=== PATIENT | male | born 1975 | race Hispanic/Latino ===

== ENCOUNTER 2019-12-07 09:03 | Emergency (ER) | payer OTHER, SELFPAY ==
[2019-12-07 09:08] VITALS: BP 123/88; PULSE 90; RESP 16; TEMP 36.6; O2SAT 99
--- NOTE | 2019-12-07 09:08 | ED.URI ---
HPI - URI/Sore Throat General Chief Complaint: Upper Respiratory Infection Stated Complaint: asthma problems Time Seen by Provider: 12/07/19 09:08 Source: patient and RN notes reviewed History of Present Illness HPI Narrative: Patient is a 44-year-old male that presents the urgent care with complaints of cough, congestion, nasal congestion, sinus pressure. Patient states that started 3 days ago and he has been taking Tylenol, ibuprofen and cold medication. Patient denies any fevers or chest pain. States that he has been using an inhaler and it does help. No other acute complaints. No acute distress noted. Denies any recent travel or known exposure to coronavirus. Patient's daughter has been translating for him and he understands Slovak fairly well. Patient aware of the plan of care. Related Data Home Medications Medication Instructions Recorded Confirmed insulin regular human [Humulin R 10 unit SUBCUT TID 09/29/19 12/07/19 Regular U-100 Insuln] atorvastatin 40 mg PO DAILY 10/05/19 12/07/19 buspirone 5 mg PO BID 10/05/19 12/07/19 fluoxetine 10 mg PO DAILY 10/05/19 12/07/19 gabapentin 100 mg PO TID 10/05/19 12/07/19 insulin glargine [Basaglar KwikPen 10 unit SUBCUT DAILY 10/05/19 12/07/19 U-100 Insulin] losartan 100 mg PO DAILY 10/05/19 12/07/19 metformin 1,000 mg PO BID 10/05/19 12/07/19 albuterol sulfate [Ventolin HFA] 2 puff INHALATION QID 12/07/19 12/07/19 Allergies Allergy/AdvReac Type Severity Reaction Status Date / Time Penicillins Allergy Rash Verified 12/07/19 09:26 Review of Systems Review of Systems: Narrative: CONSTITUTIONAL: Denies fever, chills, or sweats. EYES: Denies visual changes, redness, or discharge. ENT: Reports of sinus congestion/pressure, rhinorrhea, postnasal drainage CARDIOVASCULAR: Denies chest pain, palpitations, or edema. RESPIRATORY: Reports of dry cough with intermittent dyspnea and wheezing GASTROINTESTINAL: Denies abdominal pain, nausea, vomiting, or diarrhea. GENITOURINARY: Denies dysuria or hematuria. SKIN: Denies rash or itching. MUSCULOSKELETAL: Denies back pain, joint pain, or myalgia. NEUROLOGIC: Denies headache, numbness, or weakness. All other systems reviewed are negative, except as documented in HPI. [facility] Social History Social History (Updated 10/05/19 @ 17:40 by RYANNE Tipton) Smoking status: Never smoker Comments At the time of my signature, I reviewed and agree with the nursing past medical, surgical, social, and family history. There is no relevant family history pertinent to the patient complaint. Exam Narrative: Exam Narrative: GENERAL: This is a well-nourished, well-developed patient, in no apparent distress. HEAD: normocephalic, atraumatic. Frontal sinus tenderness EYES: PERRL. Sclera clear/white. Vision is grossly intact. EARS: External ears normal, auditory canals clear and without drainage, TMs normal without perforation. Hearing grossly intact. NOSE: External nose normal with no obvious nasal discharge, bilateral erythemic nares with clear rhinorrhea. THROAT: Mucous membranes moist, posterior pharynx clear. NECK: Neck supple, non-tender without lymphadenopathy, masses or thyromegaly. CARDIOVASCULAR: Regular rate and rhythm without murmurs, gallops, or rubs. RESPIRATORY: Slight expiratory wheeze to left upper, cleared with cough. Otherwise clear throughout. SKIN: warm, intact with no suspicious lesions or rash, good texture and turgor. NEURO: awake, alert, and oriented to person, place and time. There were no obvious focal neurologic abnormalities. EXTREMITIES: No clubbing, cyanosis, or edema. Course Vital Signs Vital signs: Vital Signs Temperature 97.9 F 12/07/19 09:08 Pulse Rate 90 12/07/19 09:08 Respiratory Rate 16 12/07/19 09:08 Blood Pressure 123/88 12/07/19 09:08 Pulse Oximetry 99 12/07/19 09:08 Temperature 97.9 F 12/07/19 09:08 Pulse Rate 90 12/07/19 09:08 Respiratory Rate 16 12/07/19 09:08 Blood P
== END 2019-12-07 09:35 | disposition home or self-care (01) ==
PROVIDERS: Emergency Provider Nurse Practitioner Family; PCP Family Medicine
DX: R06.2 Wheezing (principal); I10 Essential (primary) hypertension; E11.9 Type 2 diabetes mellitus without complications; F41.9 Anxiety disorder, unspecified; F32.9 Major depressive disorder, single episode, unspecified; J45.909 Unspecified asthma, uncomplicated
CPT/HCPCS: 99213; G0463

== ENCOUNTER 2020-02-28 09:18 | Emergency (ER) | payer OTHER, SELFPAY ==
[2020-02-28 09:53] VITALS: BP 140/89; PULSE 80; RESP 18; TEMP 36.8; O2SAT 99
--- NOTE | 2020-02-28 10:18 | ED.GENADULT ---
HPI - General Adult General Chief complaint: Weakness Stated complaint: Right side of face numb Time Seen by Provider: 02/28/20 09:50 Source: patient and RN notes reviewed Mode of arrival: ambulatory Limitations: language barrier (Liberian speaking, daughter at bedside translating) History of Present Illness HPI narrative: 45-year-old male presents with complaints of left body (head-toe) numbness for the past 3 days. Loss of vision in LT eye for the past of 2 days. Symptoms increased over the past 24 hours with intermittent chest pain and upon arrival to triage LT arm feeling heavy. No treatment. History of CVA, HTN, CO, and DM. No exacerbating factors. Family history of heart disease but no sudden . Denies fever or chills. Denies leg swelling, long car rides, hisorty of DVT, PE, LE edema, or dizziness. The patient reports he have not been diagnosed with COVID-19. The patient reports he is not waiting for the results of a COVID-19 lab test. The patient reports he do not have fever, chills, fatigue, myalgia, or facial swelling. The patient reports he do not have a new or worsening cough or shortness of breath. The patient reports he do not have any rhinorrhea, congestion, sore throat, nausea, vomiting, abdominal pain, and diarrhea. Tolerating po intake well. Denies recent traveling. Denies concerns for COVID-19 or exposures been home since [id number] order except for essential household needs, working, and return home. At this time, patient is not suspected of having COVID-19. Some parts of this dictation were generated by voice recognition software and may contain typographical and/or grammatical inaccuracies. Related Data Home Medications Medication Instructions Recorded Confirmed amlodipine 2.5 mg PO BID 12/07/19 12/07/19 azelastine 137 mcg INTRANASAL Q12H 12/07/19 12/07/19 cholecalciferol (vitamin D3) 25 mcg PO DAILY 12/07/19 12/07/19 [Vitamin D3] famotidine [Pepcid] 40 mg PO DAILY 12/07/19 12/07/19 fluoxetine 20 mg PO DAILY 12/07/19 12/07/19 fluticasone furoate 50 mcg INHALATION BID 12/07/19 12/07/19 labetalol 200 mg PO Q12H 12/07/19 12/07/19 levothyroxine 112 mcg PO DAILY 12/07/19 12/07/19 magnesium 250 mg PO DAILY 12/07/19 12/07/19 montelukast 10 mg PO DAILY 12/07/19 12/07/19 ospemifene [Osphena] 60 mg PO DAILY 12/07/19 12/07/19 spironolactone 25 mg PO DAILY 12/07/19 12/07/19 vitamin B complex [B 1 tablet PO DAILY 12/07/19 12/07/19 Complex-Vitamin B12] Allergies Allergy/AdvReac Type Severity Reaction Status Date / Time Penicillins Allergy Rash Verified 12/07/19 09:58 Review of Systems Review of Systems: Narrative: CONSTITUTIONAL: Denies fever, chills, sweats. EYES: Denies visual changes, redness, discharge. ENT: Denies rhinorrhea, congestion, sore throat, otalgia. Complains of loss of vision in LT eye. CARDIOVASCULAR: Complains of chest pain. Denies palpitations, edema. RESPIRATORY: Denies dyspnea, wheezing, cough. GASTROINTESTINAL: Denies abdominal pain, nausea, vomiting, diarrhea. GENITOURINARY: Denies dysuria, hematuria, abnormal discharge. SKIN: Denies rash or itching. MUSCULOSKELETAL: Denies acute back pain or myalgia. NEUROLOGIC: Complains of left body (head-toe) numbness. PSYCHIATRIC: Denies anxiety or depression. All systems reviewed & are unremarkable except as noted in HPI and below PMFSH Past Medical History Medical History (Updated 03/03/20 @ 13:08 by RYANNE Hernandez) Anxiety Asthma Carpal tunnel syndrome Depression Diabetes History of myocardial infarction History of TIA (transient ischemic attack) Surgical History Surgical History (Updated 03/03/20 @ 13:08 by RYANNE Hernandez) History of carpal tunnel surgery History of cholecystectomy Hx of appendectomy Family History Family History (Updated 03/03/20 @ 13:07 by RYANNE Hernandez) Father Throat cancer Mother Heart disease Social History Social History (Update
== END 2020-02-28 10:09 | disposition short-term general hospital (02) ==
PROVIDERS: Emergency Provider Nurse Practitioner Family; PCP Family Medicine
DX: I63.9 Cerebral infarction, unspecified (principal); E11.9 Type 2 diabetes mellitus without complications; I25.2 Old myocardial infarction; I10 Essential (primary) hypertension; Z86.73 Personal history of transient ischemic attack (TIA), and cerebral infarction without residual deficits
CPT/HCPCS: 99212; G0463

== ENCOUNTER 2020-05-23 10:08 | Emergency (ER) | payer OTHER, SELFPAY ==
[2020-05-23 10:14] VITALS: BP 140/80; PULSE 75; RESP 20; TEMP 36.6; O2SAT 97
--- NOTE | 2020-05-23 10:33 | ED.SKABFB ---
HPI - Skin/Abscess/Foreign Bdy General Chief complaint: Skin/Abscess/Foreign Body Stated complaint: rash on hands/arms/face Time Seen by Provider: 05/23/20 10:24 Source: patient, family and RN notes reviewed Mode of arrival: ambulatory Limitations: no limitations ( helps with translation when needed) History of Present Illness HPI narrative: Patient presents today with 2-day history of severely pruritic rash to bilateral arms, face, and upper back. Denies pain or drainage.He has tried Benadryl cream without relief. He also takes Singulair for allergies.Denies any new foods or plant contact. Denies any changes in household products.States his rash is significantly worse when he goes outside in the heat, and improves when he is inside. MD complaint: rash Related Data Home Medications Medication Instructions Recorded Confirmed amlodipine 2.5 mg PO BID 12/07/19 05/23/20 azelastine 137 mcg INTRANASAL Q12H 12/07/19 05/23/20 cholecalciferol (vitamin D3) 25 mcg PO DAILY 12/07/19 05/23/20 [Vitamin D3] famotidine [Pepcid] 40 mg PO DAILY 12/07/19 05/23/20 fluoxetine 20 mg PO DAILY 12/07/19 05/23/20 fluticasone furoate 50 mcg INHALATION BID 12/07/19 05/23/20 labetalol 200 mg PO Q12H 12/07/19 05/23/20 levothyroxine 112 mcg PO DAILY 12/07/19 05/23/20 magnesium 250 mg PO DAILY 12/07/19 05/23/20 montelukast 10 mg PO DAILY 12/07/19 05/23/20 ospemifene [Osphena] 60 mg PO DAILY 12/07/19 05/23/20 spironolactone 25 mg PO DAILY 12/07/19 05/23/20 vitamin B complex [B 1 tablet PO DAILY 12/07/19 05/23/20 Complex-Vitamin B12] Allergies Allergy/AdvReac Type Severity Reaction Status Date / Time Penicillins Allergy Rash Verified 05/23/20 10:24 Sulfa (Sulfonamide Allergy Rash Verified 05/23/20 10:25 Antibiotics) Review of Systems Review of Systems: Narrative: CONSTITUTIONAL: Denies body aches, fever, chills, or sweats. EYES: Denies visual changes, redness, or discharge. ENT: Denies rhinorrhea, congestion, sore throat, or otalgia. CARDIOVASCULAR: Denies chest pain, palpitations, or edema. RESPIRATORY: Denies cough or dyspnea. GASTROINTESTINAL: Denies abdominal pain, nausea, vomiting, or diarrhea. GENITOURINARY: Denies dysuria or hematuria. SKIN: Denies wounds.+Pruritic rash MUSCULOSKELETAL: Denies back pain, joint pain, or myalgia. NEUROLOGIC: Denies headache, numbness, tingling, or weakness. PSYCH: Denies depression or anxiety. [facility] Past Medical History Medical History (Updated 05/23/20 @ 10:40 by Cari Dumont, RYANNE, ) Anxiety Asthma Carpal tunnel syndrome Depression Diabetes History of myocardial infarction History of TIA (transient ischemic attack) Surgical History Surgical History (Updated 03/03/20 @ 13:08 by RYANNE Hernandez) History of carpal tunnel surgery History of cholecystectomy Hx of appendectomy Family History Family History (Updated 03/03/20 @ 13:07 by RYANNE Hernandez) Father Throat cancer Mother Heart disease Social History Social History (Updated 03/03/20 @ 13:08 by RYANNE Hernandez) Smoking status: Never smoker Second hand tobacco smoke exposure: No Substance use: never Gender identity (if verbalized by the patient): Male Comments At time of signature, I have reviewed and agree with nursing past medical, surgical, social and family history unless otherwise noted. Please see nursing chart for further information. There is no relevant family history pertinent to the presenting complaint Exam Narrative: Exam Narrative: GENERAL: Well-appearing, well-nourished, and in no acute distress. HEAD: Normocephalic, atraumatic. EYES: EOMI. No redness or drainage. Conjunctivae normal. ENT: Mucous membranes pink and moist. Nares clear. No rhinorrhea. NECK: Normal AROM. CHEST: No respiratory distress. EXTREMITIES: Normal range of motion. No edema. SKIN: Warm, dry. Capillary refill normal. Normal skin turgor. Small, faintly pink
== END 2020-05-23 10:45 | disposition home or self-care (01) ==
PROVIDERS: Emergency Provider Nurse Practitioner; PCP Family Medicine
DX: L30.9 Dermatitis, unspecified (principal); F41.9 Anxiety disorder, unspecified; F32.9 Major depressive disorder, single episode, unspecified; J45.909 Unspecified asthma, uncomplicated; I25.2 Old myocardial infarction; Z86.73 Personal history of transient ischemic attack (TIA), and cerebral infarction without residual deficits
CPT/HCPCS: 99213; G0463

== ENCOUNTER 2020-06-01 11:37 | Emergency (ER) | payer OTHER, SELFPAY ==
[2020-06-01 11:42] VITALS: BP 134/81; PULSE 70; RESP 20; TEMP 36.8; O2SAT 98
--- NOTE | 2020-06-01 11:42 | ED.DENTAL ---
HPI - Dental/Oral General Chief complaint: Dental/Oral Stated complaint: broken tooth Time Seen by Provider: 06/01/20 11:42 Source: patient and RN notes reviewed History of Present Illness HPI Narrative: Patient is a 45-year-old male who presents the urgent care with his daughter, who is translating for him, with complaints of lower right dental pain. Patient states that the tooth broke off last night and his dentist told him to come here to get on antibiotics before they follow-up with him in 3 weeks . Patient states that he is used Tylenol without any relief. Denies of bad taste in the mouth, nausea, vomiting, fever. Patient states that he did make the appointment for 3 weeks out with his dentist. No other acute complaints. No acute distress noted. Patient and daughter aware of the plan of care. Related Data Home Medications Medication Instructions Recorded Confirmed amlodipine 2.5 mg PO BID 12/07/19 06/01/20 azelastine 137 mcg INTRANASAL Q12H 12/07/19 06/01/20 cholecalciferol (vitamin D3) 25 mcg PO DAILY 12/07/19 06/01/20 [Vitamin D3] famotidine [Pepcid] 40 mg PO DAILY 12/07/19 06/01/20 fluticasone furoate 50 mcg INHALATION BID 12/07/19 06/01/20 labetalol 200 mg PO Q12H 12/07/19 06/01/20 levothyroxine 112 mcg PO DAILY 12/07/19 06/01/20 magnesium 250 mg PO DAILY 12/07/19 06/01/20 ospemifene [Osphena] 60 mg PO DAILY 12/07/19 06/01/20 spironolactone 25 mg PO DAILY 12/07/19 06/01/20 vitamin B complex [B 1 tablet PO DAILY 12/07/19 06/01/20 Complex-Vitamin B12] atorvastatin 40 mg PO DAILY 06/01/20 06/01/20 fluoxetine 10 mg PO DAILY 06/01/20 06/01/20 losartan 100 mg PO DAILY 06/01/20 06/01/20 montelukast 10 mg PO DAILY 06/01/20 06/01/20 nystatin 1 applic TOPICAL BID 06/01/20 06/01/20 Allergies Allergy/AdvReac Type Severity Reaction Status Date / Time Penicillins Allergy Rash Verified 06/01/20 11:54 Sulfa (Sulfonamide Allergy Rash Verified 06/01/20 11:54 Antibiotics) Review of Systems Review of Systems: Narrative: CONSTITUTIONAL: Denies fever, chills, or sweats. EYES: Denies visual changes, redness, or discharge. ENT: Denies rhinorrhea, congestion, sore throat, or otalgia. Reports of lower right broken tooth/dental pain CARDIOVASCULAR: Denies chest pain, palpitations, or edema. RESPIRATORY: Denies cough or dyspnea. GASTROINTESTINAL: Denies abdominal pain, nausea, vomiting, or diarrhea. GENITOURINARY: Denies dysuria or hematuria. SKIN: Denies rash or itching. MUSCULOSKELETAL: Denies back pain, joint pain, or myalgia. NEUROLOGIC: Denies headache, numbness, or weakness. All other systems reviewed are negative, except as documented in HPI. [facility] Past Medical History Medical History (Updated 06/01/20 @ 11:55 by RYANNE Mckeon) Anxiety Asthma Carpal tunnel syndrome Depression Diabetes History of myocardial infarction History of TIA (transient ischemic attack) Surgical History Surgical History (Updated 03/03/20 @ 13:08 by RYANNE Hernandez) History of carpal tunnel surgery History of cholecystectomy Hx of appendectomy Family History Family History (Updated 03/03/20 @ 13:07 by RYANNE Hernandez) Father Throat cancer Mother Heart disease Social History Social History (Updated 03/03/20 @ 13:08 by RYANNE Hernandez) Smoking status: Never smoker Second hand tobacco smoke exposure: No Substance use: never Gender identity (if verbalized by the patient): Male Comments At the time of my signature, I reviewed and agree with the nursing past medical, surgical, social, and family history. There is no relevant family history pertinent to the patient complaint. Exam Narrative: Exam Narrative: GENERAL: This is a well-nourished, well-developed patient, in no apparent distress. HEAD: normocephalic, atraumatic. EYES: PERRL. Sclera clear/white. Vision is grossly intact. EARS: External ears normal NOSE: External nose normal with no obvious nasal
== END 2020-06-01 12:00 | disposition home or self-care (01) ==
PROVIDERS: Emergency Provider Nurse Practitioner Family; PCP Family Medicine
DX: S02.5XXA Fracture of tooth (traumatic), initial encounter for closed fracture (principal); X58.XXXA Exposure to other specified factors, initial encounter; J45.909 Unspecified asthma, uncomplicated; E11.9 Type 2 diabetes mellitus without complications; Z86.73 Personal history of transient ischemic attack (TIA), and cerebral infarction without residual deficits; I25.2 Old myocardial infarction; F41.9 Anxiety disorder, unspecified; F32.9 Major depressive disorder, single episode, unspecified
CPT/HCPCS: 99213; G0463

== ENCOUNTER 2020-06-09 09:06 | Emergency (ER) | payer OTHER, SELFPAY ==
[2020-06-09 09:12] VITALS: BP 128/72; PULSE 67; RESP 20; TEMP 37; O2SAT 98
--- NOTE | 2020-06-09 09:17 | ED.MALEGU ---
HPI - Male Genitourinary General Chief complaint: Urogenital-Male Stated complaint: pain with urination/blood in urine Time Seen by Provider: 06/09/20 09:15 Source: patient Mode of arrival: ambulatory Limitations: no limitations History of Present Illness HPI Narrative: Danny Crawley is a 45 year old male with a PMH of HTN, high cholesterol, GERD, depression, hypothyroid, who comes with 10/10 back pain and pain when tries to urinate. No history of renal calculi. Has called primary care doctor who told him to go to the ER-states pain started yesterday and is increased in intensity. As of note patient has treatment resistant hypertension also; although blood pressure looks Related Data Home Medications Medication Instructions Recorded Confirmed amlodipine 2.5 mg PO BID 12/07/19 06/09/20 azelastine 137 mcg INTRANASAL Q12H 12/07/19 06/09/20 cholecalciferol (vitamin D3) 25 mcg PO DAILY 12/07/19 06/09/20 [Vitamin D3] famotidine [Pepcid] 40 mg PO DAILY 12/07/19 06/09/20 fluticasone furoate 50 mcg INHALATION BID 12/07/19 06/09/20 labetalol 200 mg PO Q12H 12/07/19 06/09/20 levothyroxine 112 mcg PO DAILY 12/07/19 06/09/20 magnesium 250 mg PO DAILY 12/07/19 06/09/20 ospemifene [Osphena] 60 mg PO DAILY 12/07/19 06/09/20 spironolactone 25 mg PO DAILY 12/07/19 06/09/20 vitamin B complex [B 1 tablet PO DAILY 12/07/19 06/09/20 Complex-Vitamin B12] atorvastatin 40 mg PO DAILY 06/01/20 06/09/20 fluoxetine 10 mg PO DAILY 06/01/20 06/09/20 losartan 100 mg PO DAILY 06/01/20 06/09/20 montelukast 10 mg PO DAILY 06/01/20 06/09/20 nystatin 1 applic TOPICAL BID 06/01/20 06/09/20 Allergies Allergy/AdvReac Type Severity Reaction Status Date / Time Penicillins Allergy Rash Verified 06/09/20 09:10 Sulfa (Sulfonamide Allergy Rash Verified 06/09/20 09:10 Antibiotics) Review of Systems Review of Systems: Narrative: CONSTITUTIONAL: Denies fever, chills, sweats. EYES: Denies visual changes, redness, discharge. ENT: Denies rhinorrhea, congestion, sore throat, otalgia. CARDIOVASCULAR: Denies chest pain, palpitations, edema. RESPIRATORY: Denies dyspnea, wheezing, cough GASTROINTESTINAL: Has abdominal pain, nausea, pain in lower back -jimena blood in urine at home -vomiting, diarrhea. GENITOURINARY: Denies dysuria, hematuria, abnormal discharge SKIN: Denies rash or itching. NEUROLOGIC: Denies numbness, or focal weakness. PSYCHIATRIC: Denies anxiety or depression. [facility] Past Medical History Medical History Anxiety Asthma Carpal tunnel syndrome Depression Diabetes History of myocardial infarction History of TIA (transient ischemic attack) Surgical History Surgical History History of carpal tunnel surgery History of cholecystectomy Hx of appendectomy Family History Family History Father Throat cancer Mother Heart disease Social History Social History Smoking status: Never smoker Second hand tobacco smoke exposure: No Substance use: never Gender identity (if verbalized by the patient): Male Comments At time of signature, I agree with nursing past medical, surgical, social and family history. There is no relevant family history pertinent to the presenting complaint. Exam Narrative: Exam Narrative: GENERAL: This is a well-nourished, well-developed patient, in moderate distress. HEAD: normocephalic, atraumatic. EYES: Sclera clear/white. Vision is grossly intact. EARS: External ears normal. Hearing grossly intact. NOSE: External nose normal without nasal discharge, nares without redness, no rhinorrhea. THROAT: Mucous membranes moist, NECK: Neck supple, non-tender CARDIOVASCULAR: Regular rate and rhythm without murmurs, gallops, or rubs. RESPIRATORY: Clear to auscultation.
[2020-06-09] MEDS: KETOROLAC (*BKC) 60 MG/2 ML VIAL IM (09:37)
== END 2020-06-09 10:01 | disposition short-term general hospital (02) ==
PROVIDERS: Emergency Provider Nurse Practitioner; PCP Family Medicine
DX: R31.29 Other microscopic hematuria (principal); M54.5 Low back pain; E11.9 Type 2 diabetes mellitus without complications; I25.2 Old myocardial infarction; Z86.73 Personal history of transient ischemic attack (TIA), and cerebral infarction without residual deficits
CPT/HCPCS: 81003; 96372; 99213; G0463; J1885

== ENCOUNTER 2020-07-23 12:11 | Emergency (ER) | payer OTHER, SELFPAY ==
[2020-07-23 12:21] VITALS: BP 158/80; PULSE 82; RESP 20; TEMP 36.2; O2SAT 100
--- NOTE | 2020-07-23 12:24 | ED.GENADULT ---
HPI - General Adult General Chief complaint: Wound/Laceration Stated complaint: cut on head Time Seen by Provider: 07/23/20 12:24 Source: patient, family and RN notes reviewed Mode of arrival: ambulatory Limitations: no limitations History of Present Illness HPI narrative: 45 year old male accompanied by with laceration to the left side of his head within the past hour prior to arrival at [facility]. Patient speaks Korean and translates for him during visit. states patient was remodeling bathroom and mirror came down and hit him on the head causing Laceration. Patient and state no loss of consciousness and denies any dizziness or acute headache pain. Patient has flap type of lesion on the left side of scalp in temporal region measures 1.5cm total length no acute drainage noted at this time. Tetanus needs to be updated. MD complaint: laceration to head Onset (ago): hour(s) Location: head Radiation: non-radiation Severity: moderate Severity scale (1-10): 5 Quality: sharp Associated symptoms: denies other symptoms Treatments prior to arrival: none Related Data Home Medications Medication Instructions Recorded Confirmed atorvastatin 40 mg PO DAILY 06/01/20 06/09/20 fluoxetine 10 mg PO DAILY 06/01/20 06/09/20 losartan 100 mg PO DAILY 06/01/20 06/09/20 insulin glargine [Lantus U-100 10 unit SUBCUT QPM 07/23/20 07/23/20 Insulin] insulin zinc extended human 5 unit SUBCUT DAILY 07/23/20 07/23/20 [Humulin U Insulin] metformin 1,000 mg PO BID 07/23/20 07/23/20 Allergies Allergy/AdvReac Type Severity Reaction Status Date / Time Penicillins Allergy Rash Verified 07/23/20 12:30 Sulfa (Sulfonamide Allergy Rash Verified 07/23/20 12:30 Antibiotics) Review of Systems Review of Systems: Narrative: CONSTITUTIONAL: Denies fever, chills, or sweats. EYES: Denies visual changes, redness, or discharge. ENT: Denies rhinorrhea, congestion, sore throat, or otalgia. CARDIOVASCULAR: Denies chest pain, palpitations, or edema. RESPIRATORY: Denies cough or dyspnea. GASTROINTESTINAL: Denies abdominal pain, nausea, vomiting, or diarrhea. GENITOURINARY: Denies dysuria or hematuria. SKIN: Denies rash or itching, positive for laceration to the left temporal side of head MUSCULOSKELETAL: Denies back pain, joint pain, or myalgia. NEUROLOGIC: Denies headache, numbness, or weakness. PSYCHIATRIC: Denies anxiety or depression. All systems reviewed & are unremarkable except as noted in HPI and below PMFSH Past Medical History Medical History (Updated 07/23/20 @ 12:49 by Diane Mahan NP) Anxiety Asthma Carpal tunnel syndrome Depression Diabetes History of myocardial infarction History of TIA (transient ischemic attack) Surgical History Surgical History History of carpal tunnel surgery History of cholecystectomy Hx of appendectomy Family History Family History Father Throat cancer Mother Heart disease Social History Social History Smoking status: Never smoker Second hand tobacco smoke exposure: No Substance use: never Gender identity (if verbalized by the patient): Male Comments At time of signature, agree with nursing past medical, surgical, social and family history. There is no relevant family history pertinent to the presenting complaint Exam Narrative: Exam Narrative: GENERAL: Well-appearing, well-nourished, and in no acute distress. HEAD: Normocephalic, atraumatic. EYES: PERRLA and EOMI. ENT: Nares clear, no rhinorrhea or epistaxis. Mucous membranes moist. NECK: Supple.no lymphadenopathy CHEST: Clear to auscultation. No respiratory distress.SAO2 100% on room air. HEART: Regular rate and rhythm. No murmur heard. Normal peripheral pulses. ABDOMEN: Soft, nontender, nondistended, normal active bowel sounds.
[2020-07-23] MEDS: TETANUS,DIPHTHERIA,AC PERTUSSIS ADULT (0.5 ML) BOOSTRIX IM (12:42)
== END 2020-07-23 13:08 | disposition home or self-care (01) ==
PROVIDERS: Emergency Provider Registered Nurse; PCP Family Medicine
DX: S01.01XA Laceration without foreign body of scalp, initial encounter (principal); W20.8XXA Other cause of strike by thrown, projected or falling object, initial encounter; Z23 Encounter for immunization; J45.909 Unspecified asthma, uncomplicated; E11.9 Type 2 diabetes mellitus without complications; F41.9 Anxiety disorder, unspecified; F32.9 Major depressive disorder, single episode, unspecified; I25.2 Old myocardial infarction; Z86.73 Personal history of transient ischemic attack (TIA), and cerebral infarction without residual deficits
CPT/HCPCS: 12001; 90471; 90715; 99212; G0463

== ENCOUNTER 2020-08-02 16:36 | Emergency (ER) | payer OTHER, SELFPAY ==
--- NOTE | 2020-08-02 16:37 | ED.SKABFB ---
HPI - Skin/Abscess/Foreign Bdy General Chief complaint: Wound/Laceration Stated complaint: staple removal from head Time Seen by Provider: 08/02/20 16:45 Source: patient and RN notes reviewed Mode of arrival: ambulatory Limitations: no limitations History of Present Illness HPI narrative: 45-year-old male presents with concern for staple removal. Reports 10 days ago he had 4 cynthia placed in his scalp after he sustained a laceration. He denies any complications, pain, drainage. MD complaint: other (Staple removal) Related Data Home Medications Medication Instructions Recorded Confirmed atorvastatin 40 mg PO DAILY 06/01/20 07/23/20 fluoxetine 10 mg PO DAILY 06/01/20 07/23/20 losartan 100 mg PO DAILY 06/01/20 07/23/20 insulin glargine [Lantus U-100 10 unit SUBCUT QPM 07/23/20 07/23/20 Insulin] insulin zinc extended human 5 unit SUBCUT DAILY 07/23/20 07/23/20 [Humulin U Insulin] metformin 1,000 mg PO BID 07/23/20 07/23/20 Allergies Allergy/AdvReac Type Severity Reaction Status Date / Time Penicillins Allergy Rash Verified 08/02/20 16:55 Sulfa (Sulfonamide Allergy Rash Verified 08/02/20 16:55 Antibiotics) Review of Systems Review of Systems: Narrative: CONSTITUTIONAL: Denies malaise, chills, sweats, or fever. EYES: Denies visual changes CARDIOVASCULAR: Denies chest pain, palpitations RESPIRATORY: Denies cough or dyspnea. SKIN: Reports 4 cynthia to the scalp NEUROLOGIC: Denies headache. All systems reviewed & are unremarkable except as noted in HPI and below PMFSH Past Medical History Medical History (Updated 08/02/20 @ 16:55 by Camille Navarro NP) Anxiety Asthma Carpal tunnel syndrome Depression Diabetes History of myocardial infarction History of TIA (transient ischemic attack) Surgical History Surgical History History of carpal tunnel surgery History of cholecystectomy Hx of appendectomy Family History Family History Father Throat cancer Mother Heart disease Social History Social History Smoking status: Never smoker Second hand tobacco smoke exposure: No Substance use: never Gender identity (if verbalized by the patient): Male Comments At time of signature, agree with nursing past medical, surgical, social and family history. There is no relevant family history pertinent to the presenting complaint Exam Narrative: Exam Narrative: GENERAL: Well-appearing, well-nourished, and in no acute distress. HEAD: Normocephalic EYES: PERRLA, conjunctivae clear ENT: Mucous membranes moist. NECK: Supple. CHEST: No respiratory distress. Speaks in full sentences. HEART: Regular rate and rhythm. SKIN: Warm, dry, no rash. Well approximated laceration with scab, healing noted to the left scalp, 4 intact cynthia without erythema, edema, induration, drainage NEURO: Alert and oriented x3 PSYCH: Normal mood and affect Course Course Emergency Course: Patient is aware of diagnosis, understands and agrees to treatment plan. Anticipatory guidance given. Patient agrees to follow-up as directed and is aware of reasons to seek care at the emergency department. Portions of this record may have been created with voice recognition software Vital Signs Vital signs: Vital Signs Temperature 98.3 F 08/02/20 16:40 Pulse Rate 88 08/02/20 16:40 Respiratory Rate 18 08/02/20 16:40 Blood Pressure 125/75 08/02/20 16:40 Pulse Oximetry 98 08/02/20 16:40 Temperature 98.3 F 08/02/20 16:40 Pulse Rate 88 08/02/20 16:40 Respiratory Rate 18 08/02/20 16:40 Blood Pressure 125/75 08/02/20 16:40 Pulse Oximetry 98 08/02/20 16:40 Reviewed. MDM - Skin/Abscess/Foreign Bdy MDM Narrative Medical decision making narrative: Verbal consent was obtained. Wound well approximated, no erythema, carola
[2020-08-02 16:40] VITALS: BP 125/75; PULSE 88; RESP 18; TEMP 36.8; O2SAT 98
== END 2020-08-02 16:55 | disposition home or self-care (01) ==
PROVIDERS: Emergency Provider Nurse Practitioner; PCP Family Medicine
DX: S01.01XD Laceration without foreign body of scalp, subsequent encounter (principal); X58.XXXD Exposure to other specified factors, subsequent encounter; F41.9 Anxiety disorder, unspecified; E11.9 Type 2 diabetes mellitus without complications; I25.2 Old myocardial infarction; Z86.73 Personal history of transient ischemic attack (TIA), and cerebral infarction without residual deficits; J45.909 Unspecified asthma, uncomplicated
CPT/HCPCS: 99211; G0463

== ENCOUNTER 2021-08-29 11:14 | Emergency (ER) | payer OTHER, MEDICAID, SELFPAY ==
[2021-08-29 11:22] VITALS: BP 159/96; PULSE 74; RESP 16; TEMP 36.9; O2SAT 97
--- NOTE | 2021-08-29 11:58 | ED.HA ---
HPI - Headache General Chief Complaint: Headache Stated Complaint: headache History of Present Illness HPI Narrative: This is a 46-year-old morbidly obese male comes in complaining of a headache that he has had for 2 days patient states that he has some nausea no vomiting has some blurred vision and seeing spots lights bother him and when I am talking he has pounded on his left temporal Related Data Home Medications Medication Instructions Recorded Confirmed atorvastatin 40 mg PO DAILY 06/01/20 08/29/21 losartan 100 mg PO DAILY 06/01/20 08/29/21 metformin 1,000 mg PO BID 07/23/20 08/29/21 gabapentin 300 mg PO TID 08/29/21 08/29/21 insulin pump cartridge [Omnipod 08/29/21 08/29/21 Dash 5 Pack Pod] ketoconazole 1 applic TOPICAL BID 08/29/21 08/29/21 Allergies Allergy/AdvReac Type Severity Reaction Status Date / Time Penicillins Allergy Rash Verified 08/29/21 11:41 Sulfa (Sulfonamide Allergy Rash Verified 08/29/21 11:41 Antibiotics) Review of Systems Review of Systems: Headache All systems reviewed & are unremarkable except as noted in HPI and below PMFSH Past Medical History Medical History (Updated 08/29/21 @ 13:09 by Cindy Gill NP) Anxiety Asthma Carpal tunnel syndrome Depression Diabetes History of myocardial infarction History of TIA (transient ischemic attack) Surgical History Surgical History History of carpal tunnel surgery History of cholecystectomy Hx of appendectomy Family History Family History Father Throat cancer Mother Heart disease Social History Social History Smoking status: Never smoker Second hand tobacco smoke exposure: No Substance use: never Gender identity (if verbalized by the patient): Male Comments At time as signature, I have reviewed and agree with nursing past medical, social, surgical and family history. Please see nursing chart for further information. There is no relevant family history pertinent to the presenting complaint. Exam Narrative: GENERAL:Well-appearing, well-nourished, and in no acute distress. HEAD:Normocephalic, EYES: PERRLA . ENT: Nares clear, no rhinorrhea or epistaxis. Mucous membranes moist. CHEST: Clear to auscultation. No respiratory distress. HEART: Regular rate and rhythm. Normal peripheral pulses. ABDOMEN: Soft, nontender, nondistended, normal active bowel sounds. EXTREMITIES: Normal range of motion. No edema. SKIN: Warm, dry, no rash. NEURO: No focal deficits. Alert and oriented x3. Course Vital Signs Vital signs: Vital Signs Temperature 98.4 F 08/29/21 11:22 Pulse Rate 74 08/29/21 11:22 Respiratory Rate 16 08/29/21 11:22 Blood Pressure 159/96 H 08/29/21 11:22 Pulse Oximetry 97 08/29/21 11:22 Temperature 98.4 F 08/29/21 11:22 Pulse Rate 74 08/29/21 11:22 Respiratory Rate 16 08/29/21 11:22 Blood Pressure 159/96 H 08/29/21 11:22 Pulse Oximetry 97 08/29/21 11:22 MDM - Headache Differential Diagnosis Differential diagnosis: Likely migraine, tension headache, subarachnoid hemorrhage, headache, meningitis and sinusitis Lab Data Labs: Lab Results 08/29/21 Range/Units 11:40 POC SARS CoV-2 Ag Negative (Negative) Influenza A Screen Negative Reference Range: Negative Influenza B Screen Negative Reference Range: Negative Discharge Plan Discharge Clinical Impression: Headache Patient Disposition: Home, Self-Care Condition: Stable Instructions: Antibiotic Form, Acute Headache (ED) Additional Instructions: Do not drive if you have taken a prescription pain medicine. Rest in a quiet, dark room until your headache is gone. Close your ey
[2021-08-29] MEDS: KETOROLAC 30 MG/ML VIAL (*BKC) IM (12:30)
[2021-08-29] MEDS: diphenhydrAMINE HCl CAP 25 MG CAPSULE 50 MG PO (12:31)
[2021-08-29] MEDS: ONDANSETRON HCL ODT 4 MG TABLET PO (12:32)
== END 2021-08-29 13:25 | disposition home or self-care (01) ==
PROVIDERS: Emergency Provider Nurse Practitioner Family; PCP Family Medicine
DX: R51.9 Headache, unspecified (principal); Z20.822 Contact with and (suspected) exposure to COVID-19; J45.909 Unspecified asthma, uncomplicated; E11.9 Type 2 diabetes mellitus without complications; I25.2 Old myocardial infarction; Z86.73 Personal history of transient ischemic attack (TIA), and cerebral infarction without residual deficits
CPT/HCPCS: 87426; 87804; 96372; 99213; A9270; C9803; G0463; J1885

== ENCOUNTER 2021-09-28 16:26 | Emergency (ER) | payer OTHER, MEDICAID, SELFPAY ==
[2021-09-28 16:59] VITALS: BP 180/97; PULSE 85; RESP 18; TEMP 36.8; O2SAT 99
[2021-09-28 17:30] VITALS: BP 140/90
[2021-09-28 17:58] VITALS: BP 146/95
--- NOTE | 2021-09-28 17:58 | ED.GENADULT ---
HPI - General Adult General Chief complaint: Headache Stated complaint: Headache Time Seen by Provider: 09/28/21 17:28 Source: patient, family and RN notes reviewed Mode of arrival: ambulatory History of Present Illness HPI narrative: This is a 46 YO male that presented to our with complaints of a headache, diarrhea, sore thoat, cough and fatigue that started yesterday. His symptoms started 2 weeks ago.The patient denies CP, palpitation, extremity numbness, lightheadedness, dizziness, constipation, diarrhea, chills, or fever. Related Data Home Medications Medication Instructions Recorded Confirmed atorvastatin 40 mg PO DAILY 06/01/20 09/28/21 losartan 100 mg PO DAILY 06/01/20 09/28/21 metformin 1,000 mg PO BID 07/23/20 09/28/21 gabapentin 300 mg PO TID 08/29/21 09/28/21 insulin pump cartridge [Omnipod 08/29/21 08/29/21 Dash 5 Pack Pod] cyclobenzaprine 10 mg PO DAILY 09/28/21 09/28/21 Allergies Allergy/AdvReac Type Severity Reaction Status Date / Time Penicillins Allergy Rash Verified 09/28/21 17:52 Sulfa (Sulfonamide Allergy Rash Verified 09/28/21 17:52 Antibiotics) Review of Systems Review of Systems: A 14 organ system Review of Systems was performed and pertinent positives included in the HPI, otherwise remaining ROS is negative. [facility] Past Medical History Medical History Anxiety Asthma Carpal tunnel syndrome Depression Diabetes History of myocardial infarction History of TIA (transient ischemic attack) Surgical History Surgical History History of carpal tunnel surgery History of cholecystectomy Hx of appendectomy Family History Family History Father Throat cancer Mother Heart disease Social History Social History Smoking status: Never smoker Second hand tobacco smoke exposure: No Substance use: never Gender identity (if verbalized by the patient): Male Exam Narrative: GENERAL: ill appearance in no apparent distress. HEAD: normocephalic, atraumatic. EYES: PERRL. Sclera clear/white. Vision is grossly intact. EARS: External ears normal, auditory canals clear and without drainage, TMs normal without perforation. Hearing grossly intact. NOSE: External nose normal with no obvious nasal discharge, nares without redness, no rhinorrhea. THROAT: Mucous membranes moist, posterior pharynx clear. NECK: Neck supple, non-tender without lymphadenopathy, masses or thyromegaly. CARDIOVASCULAR: Regular rate and rhythm without murmurs, gallops, or rubs. RESPIRATORY: Clear to auscultation. Breath sounds equal bilaterally. No wheezes, rales, or rhonchi. GASTROINTESTINAL: Abdomen soft, non-tender, nondistended. Bowel sounds are active. No hepato-splenomegaly, or palpable masses. No guarding. SKIN: warm, intact with no suspicious lesions or rash, good texture and turgor. NEURO: awake, alert, and oriented to person, place and time. There were no obvious focal neurologic abnormalities. Steady gait EXTREMITIES: Normal range of motion. No edema. No calf tenderness. Negative Homans sign bilaterally. BACK: Nontender without deformity or crepitance. No flank tenderness. Course Course Emergency Course: discharge with albuterol, Tessalon rene,guaifenesin dx viral illness Level of Care: Express Care Visit Vital Signs Vital signs: Vital Signs Temperature 98.2 F 09/28/21 16:59 Pulse Rate 85 09/28/21 16:59 Respiratory Rate 18 09/28/21 16:59 Blood Pressure 180/97 H 09/28/21 16:59 Pulse Oximetry 99 09/28/21 16:59 Temperature 98.2 F 09/28/21 16:59 Pulse Rate 85 09/28/21 16:59 Respiratory Rate 18 09/28/21 16:59 Blood Pressure 180/97 H 09/28/21 16:59 Pulse Oximetry 99 09/28/21 16:59 Medical Decision Making Differ
== END 2021-09-28 18:10 | disposition home or self-care (01) ==
PROVIDERS: Emergency Provider Nurse Practitioner; PCP Family Medicine
DX: B34.9 Viral infection, unspecified (principal); Z20.822 Contact with and (suspected) exposure to COVID-19; J45.909 Unspecified asthma, uncomplicated; F32.9 Major depressive disorder, single episode, unspecified; E11.9 Type 2 diabetes mellitus without complications; I25.2 Old myocardial infarction; Z86.73 Personal history of transient ischemic attack (TIA), and cerebral infarction without residual deficits; Z79.84 Long term (current) use of oral hypoglycemic drugs; Z96.41 Presence of insulin pump (external) (internal)
CPT/HCPCS: 87426; 87804; 99213; C9803; G0463

== ENCOUNTER 2022-08-13 11:46 | Emergency (ER) | payer OTHER, MEDICAID, SELFPAY ==
[2022-08-13 11:54] VITALS: BP 128/92; PULSE 90; RESP 20; TEMP 36.6; O2SAT 99
--- NOTE | 2022-08-13 13:04 | ED.URI ---
HPI - URI/Sore Throat General Chief Complaint: Upper Respiratory Infection Stated Complaint: Throat pain achey Time Seen by Provider: 08/13/22 13:05 Source: patient and RN notes reviewed Mode of arrival: ambulatory Limitations: no limitations History of Present Illness HPI Narrative: 47-year-old male presents concern for 2 day history of body aches, cough, sore throat, headache, nausea, diarrhea. Reports his and daughter had influenza within the last 2 weeks. He reports he has been taking ibuprofen [id number]. He denies shortness of breath, fever. MD elicited complaint: cough, sore throat and nasal congestion Related Data Home Medications Medication Instructions Recorded Confirmed atorvastatin 40 mg tablet 40 mg PO DAILY 06/01/20 08/13/22 losartan 100 mg tablet 100 mg PO DAILY 06/01/20 08/13/22 metformin 1,000 mg tablet 1,000 mg PO BID 07/23/20 08/13/22 gabapentin 300 mg capsule 300 mg PO TID 08/29/21 08/13/22 insulin pump cartridge (Omnipod 08/29/21 08/13/22 Dash Insulin Pod) Allergies Allergy/AdvReac Type Severity Reaction Status Date / Time Penicillins Allergy Mild Rash Verified 08/13/22 12:26 Sulfa (Sulfonamide Allergy Mild Rash Verified 08/13/22 12:26 Antibiotics) Review of Systems Review of Systems: CONSTITUTIONAL: Reports malaise. Denies chills, sweats, or fever. EYES: Denies visual changes, redness, or discharge. ENT: Reports rhinorrhea, congestion, and sore throat. CARDIOVASCULAR: Denies chest pain, palpitations, or edema. RESPIRATORY: Reports cough. Denies dyspnea. GASTROINTESTINAL: Denies abdominal pain, nausea, vomiting, diarrhea SKIN: Denies rash or itching. MUSCULOSKELETAL: Reports myalgia. NEUROLOGIC: Reports headache. All systems reviewed & are unremarkable except as noted in HPI and below PMFSH Past Medical History Medical History (Updated 08/13/22 @ 13:21 by Camille Navarro NP) Anxiety Asthma Carpal tunnel syndrome Depression Diabetes History of myocardial infarction History of TIA (transient ischemic attack) Surgical History Surgical History History of carpal tunnel surgery History of cholecystectomy Hx of appendectomy Family History Family History Father Throat cancer Mother Heart disease Social History Social History Smoking status: Never smoker Second hand tobacco smoke exposure: No Substance use: never Gender identity (if verbalized by the patient): Male Comments At time of signature, agree with nursing past medical, surgical, social and family history. There is no relevant family history pertinent to the presenting complaint Exam Narrative: GENERAL: Nontoxic-appearing and in no acute distress. HEAD: Normocephalic EYES: PERRLA, conjunctivae clear ENT: Nares clear, clear discharge. Mucous membranes moist. TM pearly padron with dull light reflex bilaterally; no tragal tenderness. Oropharynx not erythematous without lesions. Tonsils not enlarged and without exudate, no drooling, no hoarseness, no trismus, uvula midline. NECK: Supple. No lymphadenopathy CHEST: Clear to auscultation, breath sounds equal. No wheezing, rhonchi, rales, or stridor. No respiratory distress, speaks in full sentences. HEART: Regular rate and rhythm. No murmur heard. SKIN: Warm, dry, no rash. NEURO: Alert and oriented x3. PSYCH: Normal mood and affect Course Course Emergency Course: Patient is aware of diagnosis, understands and agrees to treatment plan. Anticipatory guidance given. Patient agrees to follow-up as directed and is aware of reasons to seek care at the emergency department. Portions of this record may have been created with voice recognition software Level of Care: Express Care Visit Vital Signs Vital signs: Vital Signs Temperature 97.9 F 08/13/22 1
== END 2022-08-13 13:25 | disposition home or self-care (01) ==
PROVIDERS: Emergency Provider Nurse Practitioner; PCP Family Medicine
DX: J11.1 Influenza due to unidentified influenza virus with other respiratory manifestations (principal); J45.909 Unspecified asthma, uncomplicated; E11.9 Type 2 diabetes mellitus without complications; Z86.73 Personal history of transient ischemic attack (TIA), and cerebral infarction without residual deficits; I25.2 Old myocardial infarction; Z79.4 Long term (current) use of insulin; Z79.84 Long term (current) use of oral hypoglycemic drugs
CPT/HCPCS: 87804; 99213; G0463

== ENCOUNTER 2023-11-03 14:41 | Emergency (ER) | payer OTHER, MEDICAID, SELFPAY ==
[2023-11-03] VITALS (8 sets, daily range): BP systolic 136–168; BP diastolic 60–99; PULSE 70–80; RESP 12–97; TEMP 36.9–37; O2SAT 12–99
--- NOTE | ~2023-11-03 | CT_ITS ---
Clinical Indication: Chest pain radiating to the back CT Scan of the Chest, Abdomen, and Pelvis with Contrast: Technique: Contiguous sections were acquired throughout the chest, abdomen, and pelvis after intraven ous administration of 100 cc of Omnipaque 350. Dose reduction technique was used on this scan by cristi todding automated exposure control and iterative reconstruction technique. The dose-length product (DL P) was 1686.96 mGy-cm. Findings: There is no evidence of any significant mediastinal, hilar or axillary lymphadenopathy. The mediastin al soft tissues appear normal. No aortic aneurysm or dissection seen. No central pulmonary embolus se en. There is no evidence of pleural or pericardial effusion. The lungs are clear. No pulmonary nodules or infiltrates are noted. The liver, spleen, pancreas, adrenals and kidneys are within normal limits. Cholecystectomy clips are present. No evidence of aortic aneurysm or dissection. No lymphadenopathy. No bowel obstruction or bowel wall thickening. There is no evidence to suggest acute appendicitis. Urinary bladder is unremarkable. No pelvic mass seen. No ascites. Impression: No significant abnormalities seen. No aortic aneurysm or dissection. Reviewed, dictated and finalized at [facility]. 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 No aortic aneurysm or dissection.
--- NOTE | ~2023-11-03 | XR_ITS ---
Portable chest x-ray Comparison: 09/29/2019 Clinical History: Chest pain Findings: Lungs are clear, without focal consolidation or pleural effusion. Cardiomediastinal silho uette is stable. Bones and soft tissues are unremarkable. Impression: Clear lungs. Reviewed, dictated and finalized at location . 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
--- NOTE | ~2023-11-03 | CT_ITS ---
CT ANGIOGRAM NECK AND HEAD History: Left-sided weakness. Technique: Serial spiral axial images through the head and neck were obtained during arterial phase I V injection of 100 cc of Omnipaque 350. 3-D postprocessing and MIP images were then reconstructed on the remote workstation. Dose reduction technique was used on this scan by utilizing automated exposur e control and iterative reconstruction technique. The dose-length product (DLP) was 1186.41 mGy-cm. CTA neck findings: Bilateral vertebral arteries are patent. Bilateral common carotid, internal carot id, and external carotid arteries are patent. No large vessel occlusion. No stenosis or aneurysm. The proximal right internal carotid artery demonstrates 0% stenosis relative to the normal distal artery lumen diameter. The proximal left internal carotid artery demonstrates 0% stenosis relative to the n ormal distal artery lumen diameter. CTA head findings: Distal vertebral arteries, basilar artery, and posterior cerebral arteries are pat ent. Distal internal carotid arteries, middle cerebral arteries, and anterior cerebral arteries are p atent. No large vessel occlusion. No stenosis or aneurysm. Impression: No significant abnormality. Reviewed, dictated and finalized at location . MIXER Impression: No significant abnormality.
--- NOTE | ~2023-11-03 | CT_ITS ---
Non-contrast Head CT History: Left-sided weakness Technique: Axial non-contrast imaging of the brain was performed. Dose reduction technique was used on this scan by utilizing automated exposure control and iterative reconstruction technique. The dose -length product (DLP) was 605.33 mGy-cm. Findings: There is no evidence of intracranial hemorrhage, mass lesion, or acute infarct. Brain par enchyma appears normal. The ventricles and subarachnoid spaces are normal in size. The calvarium ap pears normal. The visualized paranasal sinuses and mastoid air cells are clear. Impression: No significant abnormality seen. Reviewed, dictated and finalized at location . 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
--- NOTE | 2023-11-03 14:48 | ECG_ITS ---
Measurements Intervals Duff Rate: 71 P: 48 MI: 178 QRS: 3 QRSD: 87 T: 24 QT: 382 QTc: 416 Interpretive Statements SINUS RHYTHM NORMAL ECG NO PREVIOUS ECG AVAILABLE FOR COMPARISON Electronically Signed On 11-04-2023 8:37:11 BOILERMAKER MECHANIC by Ramin Carrasco M.D.
[2023-11-03 14:59] LABS: Glucose Point of Care 242 mg/dl (65-105)
[2023-11-03 15:11] LABS: Basophils Percent Auto 0.5 % (0.2-1.2); Eosinophils Absolute Auto 0.1 K/mm3 (0-0.3); Eosinophils Percent Auto 1.5 % (0-4.4); Hematocrit 43.8 % (42.0-52.0); Hemoglobin 15.4 g/dL (14.0-18.0); Immature Granulocyte Absolute 0.03 K/mm3 (0.00-0.031); Immature Granulocyte Percent A 0.4 % (0-0.5); Lymphocytes Absolute Auto 2.69 K/mm3 (0.9-3.2); Lymphocytes Percent Auto 31.6 % (18.3-44.2); Mean Corpuscular HGB Conc 35.2 g/dl (32-36); Mean Corpuscular Hemoglobin 30.4 pg (26-34); Mean Corpuscular Volume 86.6 fl (80-100); Mean Platelet Volume 10.2 fl (7.4-10.4); Monocytes Absolute Auto 0.8 K/mm3 (0.1-0.6); Monocytes Percent Auto 8.8 % (2.6-8.5); Neutrophils Absolute Auto 4.9 K/mm3 (1.3-6.7); Neutrophils Percent Auto 57.2 % (45.5-73.1); Platelet Count Result 253 k/mm3 (150-375); Red Blood Count 5.06 M/mm3 (4.6-6.20); Red Cell Distribution Width 12.5 % (11.5-14.5); White Blood Count 8.5 K/mm3 (4.5-10.0)
[2023-11-03 15:22] LABS: INR 0.9; Prothrombin Time 12.8 Seconds (11.1-14.7)
[2023-11-03 15:23] LABS: Partial Thromboplastin Time 27.2 SECONDS (22.3-36.8)
[2023-11-03 15:37] LABS: Alanine Aminotransferase 35 U/L (6-50); Albumin Level 4.2 g/dL (3.5-5.1); Alkaline Phosphatase 103 U/L (38-126); Anion Gap 6 mmol/L (8-16); Aspartate Amino Transferase 30 U/L (17-59); Bilirubin,Total 0.4 mg/dL (0.2-1.3); Blood Urea Nitrogen 14 mg/dL (9-20); Carbon Dioxide 26 mmol/L (22-30); Chloride 105 mmol/L (98-107); Estimated Glomerular Filt Rate > 60; Glucose 205 mg/dL (65-110); Potassium 4.1 mmol/L (3.4-5.0); Sodium 137 mmol/L (137-145)
--- NOTE | 2023-11-03 15:38 | ED.GENADULT ---
HPI - General Adult General Chief complaint: Chest Pain Stated complaint: chst pain Time Seen by Provider: 11/03/23 15:03 History of Present Illness HPI narrative: Patient is a 48-year-old male who presents ER with chest pain. Sudden onset 30 minutes prior to arrival. He reports it is a ripping sensation that goes towards his back. After calling EMS and being placed on the stretcher EMS noticed that he developed sudden onset left arm weakness. Same with his left lower extremity. Last known well would be approximately 1415. Patient is Cymro-speaking and it was difficult to get patient is on aspirin at home and no other blood thinners. Has history of [place] as well as stroke in the past. Related Data Home Medications Medication Instructions Recorded Confirmed insulin pump cartridge (Omnipod 08/29/21 08/13/22 Dash Insulin Pod) buspirone 10 mg tablet 10 mg PO 11/03/23 carbamazepine 200 mg tablet 200 mg 11/03/23 cholestyramine (with sugar) 4 gram ea 11/03/23 powder for susp in a packet dulaglutide 3 mg/0.5 mL 3 mg subcut 11/03/23 subcutaneous pen injector (Trulicity) famotidine 20 mg tablet 20 mg 11/03/23 insulin glargine 100 unit/mL (3 unit subcut 11/03/23 mL) subcutaneous pen (Lantus Solostar U-100 Insulin) loperamide 2 mg capsule 2 mg PO 11/03/23 methocarbamol 750 mg tablet mg 11/03/23 metoprolol succinate 100 mg mg PO 11/03/23 tablet,extended release 24 hr naproxen 500 mg tablet mg 11/03/23 nortriptyline 25 mg capsule mg 11/03/23 ondansetron HCl 8 mg tablet mg 11/03/23 pen needle, diabetic 32 gauge x 11/03/23 11/03/23 5/32 (BD Raisa 2nd Gen Pen Needle) tizanidine 2 mg tablet mg 11/03/23 Allergies Allergy/AdvReac Type Severity Reaction Status Date / Time Penicillins Allergy Mild Rash Verified 11/03/23 14:49 Sulfa (Sulfonamide Allergy Mild Rash Verified 11/03/23 14:49 Antibiotics) Review of Systems Review of Systems: All systems reviewed & are unremarkable except as noted in HPI and below Constitutional: Constitutional: Reports no additional constitutional complaints Eyes: Comments: Vision loss left upper quadrant left eye ENT: Reports system reviewed and no additional complaints, except as documented Cardiovascular: Cardiovascular: Reports chest pain, Denies rapid heart rate and Denies radiating jaw, neck or arm pain Respiratory: Respiratory: Reports no additional respiratory complaints Gastrointestinal: Gastrointestinal: Reports no additional gastrointestinal complaints Musculoskeletal: Musculoskeletal: Reports no additional musculoskeletal complaints Neurologic: Reports syncope, Reports headache(s), Reports focal weakness, Reports numbness and Reports weakness PMFSH Past Medical History Medical History (Updated 11/03/23 @ 16:22 by Chip Espinoza MD) Anxiety Asthma Carpal tunnel syndrome Depression Diabetes History of myocardial infarction History of TIA (transient ischemic attack) Surgical History Surgical History History of carpal tunnel surgery History of cholecystectomy Hx of appendectomy Family History Family History Father Throat cancer Mother Heart disease Social History Social History Smoking status: Never smoker Second hand tobacco smoke exposure: No Substance use: never Living arrangements: with family Occupation/Education: occupation Gender identity (if verbalized by the patient): Male Exam Narrative: GENERAL: Well-appearing, well-nourished, and in no acute distress. HEAD: Normocephalic, atraumatic. EYES: PERRL and EOMI. ENT: Mucous membranes moist. CHEST: Clear to auscultation. No respiratory distress. HEART: Regular rate and rhythm. Normal peripheral pulses. ABDOMEN: Soft, nontender, nondistended.
[2023-11-03 15:48] LABS: Troponin I < 0.012 ng/mL (0.000-0.034)
--- NOTE | 2023-11-03 16:33 | PC.NURSE ---
Pt and family members discussing TPA administration w/ Dr Espinoza at bedside at this time. Using staff interpreter.
== END 2023-11-03 17:40 | disposition short-term general hospital (02) ==
PROVIDERS: Emergency Provider Emergency Medicine; PCP Family Medicine
DX: I63.9 Cerebral infarction, unspecified (principal); R29.708 NIHSS score 8; J45.909 Unspecified asthma, uncomplicated; E11.9 Type 2 diabetes mellitus without complications; I25.2 Old myocardial infarction; F41.9 Anxiety disorder, unspecified; F32.A Depression, unspecified; Z96.41 Presence of insulin pump (external) (internal); Z86.73 Personal history of transient ischemic attack (TIA), and cerebral infarction without residual deficits; Z90.49 Acquired absence of other specified parts of digestive tract; Z79.4 Long term (current) use of insulin
CPT/HCPCS: 36415; 37195; 70450; 70496; 70498; 71045; 71275; 74174; 80053; 82948; 84484; 85025; 85610; 85730; 93005; 99285; J2997; Q9967

== ENCOUNTER 2024-05-20 17:29 | Emergency (ER) | payer OTHER, SELFPAY ==
[2024-05-20 17:34] VITALS: BP 157/104; PULSE 114; RESP 20; TEMP 37.1; O2SAT 100
--- NOTE | 2024-05-20 18:52 | ED.GENADULT ---
HPI - General Adult General Chief complaint: Chest Pain Stated complaint: stomach pain Time Seen by Provider: 05/20/24 17:39 Source: patient, RN notes reviewed and old records reviewed Mode of arrival: ambulatory Limitations: no limitations History of Present Illness HPI narrative: 49-year-old male to [facility] with his for complaint of diffuse abdominal pain and then chest pain radiating down left arm for for 2 hours. Patient and patient's are primarily Yi-speaking. initially attempted to translate for [facility] staff. Interpretation services initiated. 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 Patient's daughter and patient's expressed disappointment in site interpreter use and requested patient's daughter to translate. Per patient and patient's family request, translation services terminated. Patient tachycardic and hypertensive in triage. According to patient's daughter, patient was hospitalized at [facility] 2 weeks ago for a stroke. Patient's daughter states that patient has cardiac catheterization scheduled for May 28. EKG completed and was negative for DC. EMS called for patient transfer. Unable to further evaluate patient due to time taken for translation and EMS arrival to bedside. Patient A&O x3 exam room. Respirations even and nonlabored. Patient in mild distress from pain. Related Data Home Medications Medication Instructions Recorded Confirmed insulin pump cartridge (Omnipod 08/29/21 08/13/22 Dash Insulin Pod) buspirone 10 mg tablet 10 mg PO DAILY 11/03/23 05/20/24 carbamazepine 200 mg tablet 200 mg PO TID 11/03/23 05/20/24 dulaglutide 3 mg/0.5 mL See Rx Instructions .Route .COMPLEX 11/03/23 05/20/24 subcutaneous pen injector (Trulicity) famotidine 20 mg tablet 20 mg PO DAILY 11/03/23 05/20/24 insulin glargine 100 unit/mL (3 See Rx Instructions .Route .COMPLEX 11/03/23 05/20/24 mL) subcutaneous pen (Lantus Solostar U-100 Insulin) metoprolol succinate 100 mg 100 mg PO DAILY 11/03/23 05/20/24 tablet,extended release 24 hr nortriptyline 25 mg capsule 25 mg PO BID 11/03/23 05/20/24 pen needle, diabetic 32 gauge x 11/03/23 11/03/23 (BD Raisa 2nd Gen Pen Needle) tizanidine 2 mg tablet 2 mg PO BID 11/03/23 05/20/24 amlodipine 10 mg tablet 10 mg PO DAILY 05/20/24 05/20/24 atorvastatin 80 mg tablet 80 mg PO DAILY 05/20/24 05/20/24 ezetimibe 10 mg tablet 10 mg PO DAILY 05/20/24 05/20/24 losartan 100 mg tablet 100 mg PO DAILY 05/20/24 05/20/24 sennosides 8.6 mg tablet (senna) See Rx Instructions .Route 05/20/24 05/20/24 .COMPLEX PRN Constipation spironolactone 25 mg tablet 25 mg PO BID 05/20/24 05/20/24 Allergies Allergy/AdvReac Type Severity Reaction Status Date / Time Penicillins Allergy Mild Rash Verified 05/20/24 17:39 Sulfa (Sulfonamide Allergy Mild Rash Verified 05/20/24 17:39 Antibiotics) Review of Systems Review of Systems: All systems reviewed & are unremarkable except as noted in HPI and below Constitutional: Constitutional: Reports no additional constitutional complaints Eyes: Eyes: Reports no additional eye complaints ENT: Reports system reviewed and no additional complaints, except as documented Cardiovascular: Cardiovascular: Reports as per HPI, Reports chest pain, Reports radiating jaw, neck or arm pain (left arm per patient, translated by daughter) and Denies dyspnea Respiratory: Respiratory: Reports no additional respiratory complaints, Denies cough and Denies dyspnea Gastrointestinal: Gastrointestinal: Reports as per HPI and Reports abdominal pain ( Diffuse) Musculoskeletal: Musculoskeletal: Reports no additional musculoskeletal complaints Neurologic: Reports system reviewed and no additional complaints, except as documented Psychiatric: Psychiatric: Reports no additional psychiatric complaints [facility] Past Medical History Medical History (Update
--- NOTE | 2024-05-20 18:53 | ECG_ITS ---
Test Date: 2024-05-20 17:50:13 Measurements Intervals [place] Rate: 120 P: 27 MA: 148 QRS: -5 QRSD: 82 T: 31 QT: 318 QTc: 451 Interpretive Statements SINUS TACHYCARDIA OTHERWISE WITHIN NORMAL LIMITS No previous ECG available for comparison Electronically Signed On 05-21-2024 13:15:20 CDT by Slim Mckeon M.D.
== END 2024-05-20 18:02 | disposition short-term general hospital (02) ==
PROVIDERS: Emergency Provider Nurse Practitioner Family; PCP Family Medicine
DX: R07.9 Chest pain, unspecified (principal); R10.9 Unspecified abdominal pain; J45.909 Unspecified asthma, uncomplicated; E11.9 Type 2 diabetes mellitus without complications; Z79.4 Long term (current) use of insulin; I25.2 Old myocardial infarction; Z86.73 Personal history of transient ischemic attack (TIA), and cerebral infarction without residual deficits; F41.9 Anxiety disorder, unspecified; F32.A Depression, unspecified
CPT/HCPCS: 93005; 99215; G0463

== ENCOUNTER 2025-02-01 10:59 | Emergency (ER) | payer OTHER, SELFPAY ==
[2025-02-01 11:10] VITALS: BP 141/78; PULSE 67; RESP 20; TEMP 36.5; O2SAT 98
--- OUTSIDE RECORDS SUMMARY | 2025-02-01 11:20 | XMS_ITS | Encounter Summary ---
Author Organization [facility] Address [address] [place] [address] Care Team Providers Care Architectural Intern Name Role Phone Joe Woody MD Primary Care Provider [phone] Joe Woody MD Unavailable [phone] Unknown, Notinfile Unavailable Unavailable Belle Armas MD Unavailable Corbin Ayala MD Unavailable [phone] Slim Grove MD Unavailable [phone] Miscellaneous, Not In File Unavailable Unava ilable Encounter Details Date Type Department Care Team (Late st Contact Info) Description 06/27/2020 Telephone [facility] [address] [facility] [address] [place] [address] Key Calvert RN Social History Tobacco Use Types Packs/Day Years Used Date Smoking Tobacco: Never Smokeless Tobacco: Never Alcohol Use Standard Drinks/Week Comments Never 0 (1 standard drink = 0.6 oz pur e alcohol) AUDIT-C Answer Date Recorded Frequency of Alcohol Consumption Never 06/16/2020 Average Number of Drinks Not on file 020 Frequency of Binge Drinking Not on file 05/25 PHQ-2 Answer Date Recorded PHQ-2 Score 0 05/16/2019 Sex and Gender Information Value Date Recorded Sex Assigned at Not on file Legal Sex Male 12:02 PM CDT Gender Identity Not on file Sexual Orientation Not on file documented as of this encounter Plan of Treatment Not on file documented as of this encounter Visit Diagnoses Not on filedocumented in this encounter Additional Health Concerns Infection Onset Date Last Indicated Resolved Time COVID: Suspected 08/30/2020 08/30/2020 08/30/2020 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
--- OUTSIDE RECORDS SUMMARY | 2025-02-01 11:20 | XMS_ITS | Clinical Summary ---
Author Organization [facility] Address [address] [place] [address] Phone Care Team Providers Care Resident Manager Name Role Phone Joe Woody MD Primary Care Provider [phone] Matthew Guaman MD Unavailable [phone] Toni Reeves MD Unavailable Martina Sheldon APRN, ZYGLO TECHNICIAN Unavailable Allergies Active Allergy Reactions Criticality Noted Date Comments Metformin Diarrhea Low 09/28/2022 And abdominal pain Other-Environmental Allergen (Not Found In Search) Shortness of Breath High 06/19/2022 IV contrast Penicillins Unknown 06/08/2019 Shrimp (Diagnostic) Hives 06/19/2022 Sulfa Antibiotics Unknown 06/08/2019 Medications losartan (COZAAR) 100 MG TabletIndicatio ns:Hypertension Take 100 mg by mouth daily. Indications: High Blood Pressure Disorder Active carBAMazepine (TEGretol) 200 MG Tablet Take 1 Tablet by mouth 3 times daily. 360 Tablet 2 Active Additional Information Patient not taking.Reported on 12/24/2024 atorvastatin (LIPITOR) 80 MG Tablet Take 1 Tablet by mouth nightly. 90 Tablet 2 Active meclizine (ANTIVERT) 25 MG Tablet Take 1 Tablet by mouth 3 times daily as needed for Dizziness. 30 Tablet 2 Active ondansetron (Zofran ODT) 4 MG TABLET DISPERSIBLE Take 1 Tablet by mouth every 6 hours as needed for Nausea - 1st line. 20 Tablet 2 Active albuterol 108 (90 Base) MCG/ACT Aerosol Solution take 2 Puffs by inhalation every 4 hours as needed. Active Dulaglutide (Trulicity) 1.5 MG/0.5ML Solution Pen-injector by Subcutaneous route. Active nortriptyline (PAMELOR) 25 MG Capsule Take 25 mg by mouth nightly. Active cloNIDine (CATAPRES) 0.1 MG Tablet Take 0.1 mg by mouth daily. Active amLODIPine (NORVASC) 10 MG Tablet Take 10 mg by mouth every morning. 4 Active ALPRAZolam (XANAX) 0.25 MG Tablet Take 0.25 mg by mouth nightly. Active escitalopram (LEXAPRO) 20 MG Tablet Take 20 mg by mouth daily. 4 Active busPIRone (BUSPAR) 15 MG Tablet Take 15 mg by mouth 3 times daily. Active OneTouch Verio Strip CHECK BLOOD SUGAR 2X TIMES A DAY 4 Active spironolactone (ALDACTONE) 25 MG Tablet Take 25 mg by mouth 2 times daily. Active methocarbamol (ROBAXIN) 750 MG Tablet Take 750 mg by mouth. 4 Active insulin glargine (Basaglar KwikPen) 100 UNIT/ML Solution Pen-injector 30 Units by Subcutaneous route nightly. 15 mL 3 4 Active Insulin Lispro (HumaLOG KwikPen) 200 UNIT/ML Solution Pen-injector 20 Units by Subcutaneous route 3 times daily (before meals). 15 mL 2 4 Active polyethylene glycol (GLYCOLAX, MIRALAX) 17 g PackIndications :Constipation Take 1 Packet by mouth 2 times daily as needed for Constipation - 1st line. Dissolve in 4-8 oz of liquid. Indications: Constipation 90 Packet 4 Active Additional Information Patient not taking.Reported on 12/24/2024 senna (SENOKOT) 8.6 MG Tablet Take 1 Tablet by mouth 2 times daily as needed for Constipation - 2nd line. 30 Tablet 4 Active Additional Information Patient not taking.Reported on 12/24/2024 Insulin Pen Needle (PEN NEEDLES 31GX5/16 ) 31G X 8 MM [facility] As Instructed- use 4 times daily with insulin pens 100 Each 4 Active Aspirin Low Dose 81 MG Chewable Tablet Take 81 mg by mouth daily. 4 Active metoprolol Succinate (Toprol XL) 50 MG TABLET SR 24 HR Take 1 Tablet by mouth daily. 90 Tablet 3 5 Active ezetimibe (ZETIA) 10 MG Tablet Take 10 mg by mouth daily. 4 025 indomethacin (INDOCIN) 50 MG Capsule Take 1 Capsule by mouth 3 times daily as needed for Moderate or more severe pain (headache) for up to 14 days. 20 Capsule 5 025 Active Problems Problem Noted Date Diagnosed Date Acute CVA (cerebrovascular accident) 08/26/2024 Hyponatremia 05/21/2024 Leukocytosis 05/21/2024 Chest pain 04/29/2024 PFO (patent foramen ovale) 02/27/2024 Overview (04/29/2024): noted on recent [facility] at [facility] History of TIA (transient ischemic attack) 02/26 Overview (04/29/2024): received TNK muliple times Headache 12/21/2021 Mixed hyperlipidemia 12/21/2021 Overview (12/21/2021): Last Assessment & Plan: This is a chronic condition which is not at goal. Goal is less than 70. Personally reviewed POC lipid panel. Cholesterol 256, HDL 35, triglycerides-396, LDL - 142, atorvastatin 40 mg daily. Not at Goal of less than 70 Encouraged to eat healthy, include fresh fruits and vegetables daily and avoid eating fried foods more than once per week. Encouraged to take medications as prescribed. CHF (congestive heart failure) 12/21/2021 History of TIA (transient ischemic attack) 12/21 Type 2 diabetes mellitus, wi th long-term current use of insulin 12/21/2021 Low back pain with left-sided sciatica 2 Trigeminal neuralgia of left side of face 2021 SHERRI (obstructive sleep apnea) 03/03/2020 Essential hypertension 04/16/2019 Overview (12/21/2021): Last Assessment & Plan: This is a chronic condition which is at goal Goal is <140/90. B/P today- 142/80 , currently on losartan 100 mg daily. Personally reviewed labs in care everywhere and media. Avoid caffeine, caffeine will raise blood pressure and excessive alcohol consumption. Monitor your weight and B/P. Encouraged to take medications as prescribed. 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 04/16/2019 Class 3 severe obesity with serious comorbidity and body mass index (BMI) of 45.0 to 49.9 in adult 04/16/2019 Anxiety DM type 2 (diabetes mellitus, type 2) CHF (congestive heart failure) SHERRI on CPAP Trigeminal neuralgia Morbid obesity IN (myocardial infarction) Hypertension HLD (hyperlipidemia) Diabetes mellitus Mild CAD without angina pectoris Resolved Problems Problem Noted Date Diagnosed Date Resolved Date Thrombus of left atrial appendage 02/27/2024 10/16/2024 Overview (04/29/2024): seen on LUIS Encounters Date Type Department Care Team Description 12/26/2024 9:44 AM CDT - 12/26/2024 2:26 PM CDT Emergency [facility] Emergency [address] [place] [address] Jonathan Hernandes MD Acute CVA (cerebrovascular accident) (HCC) Discharge Disposition: Discharged to home or Selfcare 12/26/2024 Travel 12/24/2024 1:30 PM CDT [facility] [address] [place] [address] Martina Sheldon APRN, ÁLVARO Essential hypertension (Primary Dx); Mixed hyperlipidemia; PFO (patent foramen ovale) Discharge Disposition: Discharged to home or Selfcare 12/24/2024 Travel 12/24/2024 Telephone [facility] [address] [place] [address] Martina Sheldon, LARRY, ÁLVARO from Last 3 Months Immunizations Immunization Administration Dates Next Due Covid-19, Mrna, Lnp-s, Pf, 1 00 Mcg Or 50 Mcg Dose (MODERNA) 09/14/2021,01/02/2021,12/05/2020 Influenza Vaccine, MDCK,quad rivalent, pres free 09/14/2021 Influenza Vaccine, Quadrivalent, PF 10/08/2019 Influenza Vaccine,unspecified Formulation 2019 Family History Medical History Relation Name Comments Heart Attack Father Lung Cancer Father Stroke Father Diabetes Mother Hypertension Mother Relation Name Status Comments Father Mother Alive Social History Tobacco Use Types Packs/Day Years Used Date Smoking Tobacco: Never Smokeless Tobacco: Never Alcohol Use Standard Drinks/Week Comments Not Currently 0 (1 standard drink = 0.6 oz pur e alcohol) [facility] Utilities Answer Date Recorded In the past 12 months has [employer], gas, oil, or water [employer] threatened to shut off services in your home? Patient declined 08/26/2024 Social Connection and Isolation Panel [NHANES] A nswer Date Recorded In a typical week, how many times do you talk on the phone with family, friends, or neighbors? Patient declined 08/26/2024 How often do you get togethe r with friends or relatives? Patient declined 08/26/2024 How often do you attend restorationism or catholic serv ices? Patient declined 08/26/2024 Do you belong to any clubs o r organizations such as restorationism groups, unions, fraternal or athletic groups, or school groups? Patient declined 08/26/2024 How often do you attend meet ings of the clubs or organizations you belong to? Patient declined 08/26/2024 Are you , , di vorced, , never , or living with a partner? Patient declined 08/26/2024 AUDIT-C Answer Date Recorded Q1: How often do you have a drink containing alc ohol? Patient declined 08/26/2024 Q2: How many drinks containi ng alcohol do you have on a typical day when you are drinking? Patient declined 08/26/2024 Q3: How often do you have si x or more drinks on one occasion? Patient declined 08/26/2024 Overall Financial Resource Strain (CARDIA) Answe r Date Recorded How hard is it for you to pa y for the very basics like food, housing, medical care, and heating? Patient declined 08/26/2024 PHQ-2 Answer Date Recorded Total Score - Questions 1-9 0 11/23 [facility] - Occupational Stress Questionnaire Answer Date Recorded Do you feel stress - tense, restless, nervous, or anxious, or unable to sleep at night because your mind is troubled all the time - these days? Patient declined 08/26/2024 Exercise Vital Sign Answer Date Recorde d On average, how many days pe r week do you engage in moderate to strenuous exercise (like a brisk walk)? Patient declined On average, how many minutes do you engage in exercise at this level? Patient declined 08/26/2024 Hunger Vital Sign Answer Date Recorded Within the past 12 months, y ou worried that your food would run out before you got the money to buy more. Patient declined Within the past 12 months, t he food you bought just didn't last and you didn't have money to get more. Patient declined 12/2023 PRAPARE - Transportation Answer Date Re corded In the past 12 months, has l ack of transportation kept you from medical appointments or from getting medications? Patient declined 08/26/2024 In the past 12 months, has l ack of transportation kept you from meetings, work, or from getting things needed for daily living? Patient declined 08/26/2024 Housing Stability Vital Sign Answer James e Recorded In the last 12 months, was t here a time when you were not able to pay the mortgage or rent on time? Patient declined 08/26/20 24 In the past 12 months, how m any times have you moved where you were living? 0 08/26/2024 At any time in the past 12 m [facility], were you homeless or living in a nursing home (including now)? Patient declined 08/26/2024 Sexually Active Control Partners Comments Not Currently Sex and Gender Information Value Date Recorded Sex Assigned at Not on file Legal Sex Male 8:40 AM CDT Gender Identity Not on file Sexual Orientation Not on file Last Filed Vital Signs Vital Sign Reading Time Taken Comments Blood Pressure 100/65 12/26/2024 2:15 PM CDT Pulse 57 12/26/2024 2:15 PM CDT Temperature 36.2 C (97.2 F) 12/26/2024 9:52 AM CDT Respiratory Rate 17 12/26/2024 2:15 PM CDT Oxygen Saturation 94% 12/26/2024 2:15 PM CDT Inhaled Oxygen Concentration - - Weight 121.1 kg (267 lb) 12/26/2024 9:53 AM CDT Height 177.8 cm (5' 10 ) 12/26/2024 9:53 AM CDT Body Mass Index 38.31 12/26/2024 9:53 AM CDT Plan of Treatment Upcoming Encounters Date Type Department Care Team (Late st Contact Info) Description 04/09/2025 11:00 AM CDT Office Visit [facility] [place] [address] [place] [address] Toni Reeves MD [address] [address] Health Maintenance Due Date Last Done Comments Diabetes: Eye Exam 1976 Diabetes: Foot Exam 1976 Hepatitis C Virus (HCV) Screening 1975 TdaP Immunization 1976 Hepatitis B Immunization (1 of 3 - 19+ 3-dose series) 02/11/1995 Pneumococcal Immunization Combined (1 of 2 - PCV) 02/11/1995 SARS-COV-2 Immunization ( season) 2024 09/14/2021, 01/02/2021, 12/05/2020 Diabetes: Hemoglobin A1c 02/24/2025 024, 06/26/2024, 04/29/2024, Additional history exists Influenza Immunization (Season Ended) 2025 09/14/2021, 07/01/2020, 10/08/2019 Diabetes: Nephropathy Screening 12/26/2025 12/26/2024, 10/20/2024, 08/26/2024, Additional history exists Colonoscopy 12/10/2033 12/11/2023 Colorectal Cancer Screening 12/10/2033 Respiratory Syncytial Virus (RSV) Immunization (Adult) (1 - 1-dose 75+ series) 02/11/2051 12/11/2023 Meningococcal Immunization (ACWY) Aged Out No longer eligible based on patient's age to complete this topic Rotavirus Immunization Aged Out No lo nger eligible based on patient's age to complete this topic Medical Devices Implanted Type Area Keyliner Device Identifier Shelf Expiration Date Model / Serial / Lot Device Perclose Prostyle Suture-Mediate d Closure And Repair System - [id number] Implanted:Qty: 1 on 05/21/2024 by Ankita Mccoy MD at [facility] IMPLANT [employer] [id number] 04/22/2025 [id number] / [id number] Procedures Procedure Name Priority Date/Time Associated Diagnosis Comments CT STROKE HEAD WO CONTRAST Stat with Interpretation 12/26/2024 10:03 AM CDT CBC WITH AUTO DIFFERENTIAL STAT 12/26/2024 9:57 AM CDT MAGNESIUM (MG) STAT 12/26/2024 9:57 AM CDT TROPONIN I, HIGH SENSITIVITY (HSTRP) STAT 12/26/2024 9:57 AM CDT CMP (COMPREHENSIVE METABOLIC PANEL) STAT 12/26/2024 9:57 AM CDT PROTIME (PT) (PROTHROMBIN TIME) STAT 12/26/2024 9:57 AM CDT APTT (PTT) STAT 12/26/2024 9:57 AM CDT COMPLETE BLOOD COUNT (CBC) WITH DIFF STAT 12/26/2024 9:57 AM CDT POCT GLUCOSE STAT 12/26/2024 9:51 AM CDT EKG 12 LEAD STAT 12/26/2024 9:50 AM CDT EKG SCAN 12/26/2024 12:00 AM CDT HEMOGLOBIN A1C W/ ESTIMATED GLUCOSE Routine 08/26/2024 8:40 AM [employer] from Last 3 Months or Most Recently Relevant to Health Maintenance Results * CT STROKE HEAD WO CONTRAST (12/26/2024 10:03 AM CDT) Anatomical Region Laterality Modality Head N/A Computed Tomogra phy 12/26/2024 10:1 3 AM CDT Impressions 12/26/2024 10:16 AM CDT IMPRESSION: No acute intracranial findings. Recommend brain MRI for increased sensitivity of acute ischemia. Findings called by [facility] staff at the time of this dictation to the treatment team as per stroke communication protocol. 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 Images stored on PACS. Automated exposure control was used as a dose optimization technique for this examination. COMPARISON: Head CT dated 08/26/2024. FINDINGS: BRAIN: No hemorrhage, edema or mass effect. No recent infarct. Normal white matter. EXTRA-AXIAL SPACES: No fluid collections. No masses. CALVARIUM: No fracture. SINUSES/MASTOIDS: No fluid or mucosal thickening. ORBITS: No significant abnormality. OTHER: No other significant abnormality. THIS IS AN ELECTRONICALLY VERIFIED FINAL REPORT 12/26/2024 10:13 AM - Electronically signed by Slim Choi M.D. 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 Images stored on PACS. Automated exposure control was used as a dose optimization technique for this examination. COMPARISON: Head CT dated 08/26/2024. FINDINGS: BRAIN: No hemorrhage, edema or mass effect. No recent infarct. Normal white matter. EXTRA-AXIAL SPACES: No fluid collections. No masses. CALVARIUM: No fracture. SINUSES/MASTOIDS: No fluid or mucosal thickening. ORBITS: No significant abnormality. OTHER: No other significant abnormality. THIS IS AN ELECTRONICALLY VERIFIED FINAL REPORT 12/26/2024 10:13 AM - Electronically signed by Slim Choi M.D. MF: [id number] Report ID: [id number] Reading Location: [id number] IMPRESSION: No acute intracranial findings. Recommend brain MRI for increased sensitivity of acute ischemia. Findings called by [facility] staff at the time of this dictation to the treatment team as per stroke communication protocol. Jonathan Hernandes MD IMG CT ORDERABLES Mary Lou l Result * TROPONIN I, HIGH SENSITIVITY (HSTRP) (12/26/2024 9:57 AM CDT) [facility] TROPONIN I, HIGH SENSITIVITY- ROBLES <3 <=35 ng/L 12/26/2024 10:58 AM CDT [facility] Comment: High-sensitivity troponin I results are reported in ng/L making the result appear to be 1,000 times higher than the contemporary troponin I value which is reported in ng/ml. Results from [employer]. Blood Venipuncture / Unknown 12/26/2024 9:57 AM CDT 12/26/2024 10:33 AM CDT us Jonathan Hernandes MD CHEMISTRY ORDERABLES F inal Result [facility] [address] [place] [address] * (ABNORMAL) CBC with Auto Differential (12/26/2024 9:57 AM CDT) [facility] WBC 9.67 4.00 - 12.00 10(3)/mcL 12/26/2024 10:36 AM CDT [facility] RBC 4.37(L) 4.40 - 5.80 10(6)/mcL 12/26/2024 10:36 AM CDT [facility] HEMOGLOBIN (HGB) 13.5 13.0 - 16.5 g/dL 12/26/2024 10:36 AM CDT [facility] HEMATOCRIT (HCT) 38.3 38.0 - 50.0 % 12/26/2024 10:36 AM CDT [facility] MCV 87.6 82.0 - 96.0 fL 12/26/2024 10:36 AM CDT [facility] MCH 30.9 26.0 - 32.0 pg 12/26/2024 10:36 AM CDT [facility] MCHC 35.2 31.0 - 36.0 g/dL 12/26/2024 10:36 AM CDT [facility] PLATELET COUNT 249 140 - 440 10(3)/[facility] 12/26/2024 10:36 AM CDT [facility] RDW 12.1 11.8 - 15.5 % 12/26/2024 10:36 AM CDT [facility] MPV 11.4 8.0 - 12.6 fL 12/26/2024 10:36 AM CDT [facility] NEUTROPHILS 74.1(H) 40.0 - 68.0 % 12/26/2024 10:36 AM CDT [facility] LYMPHOCYTES 18.9(L) 19.0 - 49.0 % 12/26/2024 10:36 AM CDT [facility] MONOCYTES 6.5 3.0 - 13.0 % 12/26/2024 10:36 AM CDT [facility] EOSINOPHILS 0.3 0.0 - 8.0 % 12/26/2024 10:36 AM CDT [facility] BASOPHILS 0.2 0.0 - 1.0 % 12/26/2024 10:36 AM CDT [facility] ABSOLUTE NEUTROPHILS 7.16(H) 1.40 - 5.30 10(3)/[facility] 12/26/2024 10:36 AM CDT [facility] ABSOLUTE LYMPHOCYTES 1.83 0.90 - 3.30 10(3)/[facility] 12/26/2024 10:36 AM CDT [facility] ABSOLUTE MONOCYTES 0.63 0.10 - 0.90 10(3)/[facility] 12/26/2024 10:36 AM CDT [facility] ABSOLUTE EOSINOPHIL 0.03 0.00 - 0.50 10(3)/[facility] 12/26/2024 10:36 AM CDT [facility] ABSOLUTE BASOPHILS 0.02 0.00 - 0.10 10(3)/[facility] 12/26/2024 10:36 AM CDT [facility] NRBC PER 100 WBC 0 12/27/19 10:36 AM CDT [facility] Blood Venipuncture / Unknown 12/26/2024 9:57 AM CDT 12/26/2024 10:33 AM CDT us Jonathan Hernandes MD HEMATOLOGY ORDERABLES Final Result [facility] [address] [place] [address] * APTT (PTT) (12/26/2024 9:57 AM CDT) PTT 27 24 - 36 sec 12/26/2024 10:50 AM CDT [facility] Blood Venipuncture / Unknown 12/26/2024 9:57 AM CDT 12/26/2024 10:33 AM CDT Narrative [facility] - 12/26/2024 10:50 AM CDT Therapeutic range for unfractionated heparin at 0.3-0.7 U/mL is an aPTT value in the range of 71-100 seconds. Critical value for the PTT test is >= 122 seconds. us Jonathan Hernandes MD HEMATOLOGY ORDERABLES Final Result [facility] [address] [place] [address] * PT (PROTHROMBIN TIME) (12/26/2024 9:57 AM CDT) PROTIME-PATIENT 13.7 11.6 - 14.8 sec 12/26/2024 10:50 AM CDT [facility] INR 1.0 0.9 - 1.2 12/26/2024 10:50 AM CDT [facility] Comment: Therapeutic Ranges INR = 2.0-3.0: Venous thromb, atrial fib, pul embolism, tissue heart valve, ami. INR = 2.5-3.5: Mechanical heart valve Critical value for INR is >/= 4.5 Blood Venipuncture / Unknown 12/26/2024 9:57 AM CDT 12/26/2024 10:33 AM CDT us Jonathan Hernandes MD HEMATOLOGY ORDERABLES Final Result Performing Organization Address [facility] de Phone Number [facility] [address] [place] [address] * Magnesium (Mg) [id number] (12/26/2024 9:57 AM CDT) [facility] MAGNESIUM 1.7 1.6 - 2.6 mg/dL 12/26/2024 10:53 AM CDT [facility] Blood Venipuncture / Unknown 12/26/2024 9:57 AM CDT 12/26/2024 10:33 AM CDT us Jonathan Hernandes MD CHEMISTRY ORDERABLES F inal Result Performing Organization Address [facility] Co de Phone Number [facility] [address] [place] [address] * (ABNORMAL) Comprehensive Metabolic Panel (Cmp) [id number] (12/26/2024 9:57 AM CDT) SODIUM 135(L) 136 - 145 mmol/L 12/26/2024 10:53 AM CDT [facility] POTASSIUM 4.8 3.5 - 5.1 mmol/L 12/26/2024 10:53 AM CDT [facility] CHLORIDE 103 98 - 107 mmol/L 12/26/2024 10:53 AM CDT [facility] CO2, VENOUS 25 22 - 30 mmol/L 12/26/2024 10:53 AM CDT [facility] ANION GAP 11.8 <18.0 mmol/L 12/26/2024 10:53 AM CDT [facility] GLUCOSE 371(H) 70 - 99 mg/dL 12/26/2024 10:53 AM CDT [facility] BUN 14 9 - 21 mg/dL 12/26/2024 10:53 AM CDT [facility] CREATININE, BLOOD 0.81 0.70 - 1.30 mg/dL 12/26/2024 10:53 AM CDT [facility] BUN/CREATININE RATIO 17 12 - 20 ratio 12/26/2024 10:53 AM CDT [facility] TOTAL PROTEIN 6.6 6.0 - 8.0 g/dL 12/26/2024 10:53 AM CDT [facility] ALBUMIN 3.8 3.5 - 5.0 g/dL 12/26/2024 10:53 AM CDT [facility] A/G RATIO 1.4 1.0 - 2.2 12/26/2024 10:53 AM CDT [facility] CALCIUM 8.3(L) 8.7 - 10.5 mg/dL 12/26/2024 10:53 AM CDT [facility] T BILI 0.3 0.2 - 1.2 mg/dL 12/26/2024 10:53 AM CDT [facility] SGOT (AST) 17 <43 U/L 12/26/2024 10:53 AM CDT [facility] SGPT (ALT) 22 <56 U/L 12/26/2024 10:53 AM CDT [facility] ALKALINE PHOSPHATASE 85 40 - 150 U/L 12/26/2024 10:53 AM CDT [facility] GFR, ESTIMATED >60 >=60 12/26/2024 10:53 AM CDT [facility] Comment: Creatinine Clearance is the preferred criteria for selecting drug dose adjustments in renally impaired patients. The GFR is provided as additional pertinent clinical information. GFR is reported in mL/min/1.73 sq m. Calculation based on the Chronic Kidney Disease Epidemiology Collaboration (CKD- EPI) equation refit without adjustment for race. GFR, EST. >60 >=60 025 10:53 AM CDT [facility] GFR, EST. NONAFRICAN >60 >=60 12/26/2024 10:53 AM CDT [facility] Blood Venipuncture / Unknown 12/26/2024 9:57 AM CDT 12/26/2024 10:33 AM CDT us Jonathan Hernandes MD CHEMISTRY ORDERABLES F inal Result [facility] [address] [place] [address] * (ABNORMAL) POCT Glucose (12/26/2024 9:51 AM CDT) GLUCOSE,BEDSID E POCT 329(H) 70 - 99 mg/dL 12/26/2024 9:57 AM CDT [facility] Comment:Patient RN Performed Blood 12/26/2024 9:51 AM CDT 12/26/2024 9:57 AM CDT us None Provider POINT OF CARE TESTING Final Resu lt [facility] [address] [place] [address] * EKG 12 LEAD (12/26/2024 9:50 AM CDT) Ventricular Rate 61 BPM EXTERNAL EKG Atrial Rate 61 BPM EXTERNAL EKG P-R Interval 168 ms EXTERNAL EKG QRS Duration 72 ms EXTERNAL EKG Q-T Duration 432 ms EXTERNAL EKG QTC CALCULATION 434 ms EXTERNAL EKG P [place] 23 degrees EXTERNAL EKG R [place] 14 degrees EXTERNAL EKG T [place] 46 degrees EXTERNAL EKG 12/26/2024 9:50 AM CDT Impressions EXTERNAL EKG - 12/29/2024 4:50 PM CDT Normal sinus rhythm Normal ECG When compared with ECG of 10/20/2024 No significant change was found ~ Confirmed by ANKITA MCCOY ([id number]) on 12/29/2024 4:50:23 PM Narrative Procedure Note Ankita Mccoy MD - 12/29/2024 IMPRESSION: Normal sinus rhythm Normal ECG When compared with ECG of 10/20/2024 No significant change was found ~ Confirmed by NAKITA MCCOY ([id number]) on 12/29/2024 4:50:23 PM us Jonathan Hernandes MD IMG ECG ORDERABLES Fin al Result EXTERNAL EKG * EKG SCAN (12/26/2024 12:00 AM CDT) 12/26/2024 us Provider Scan IMG ECG ORDERABLES Final Result RESULTING AGENCY * (ABNORMAL) Hemoglobin A1C w/ Estimated Glucose (08/26/2024 8:40 AM [employer]) HGB-A1C 9.6(H) 4.0 - 6.0 % 08/26/2024 12:08 PM [employer] [facility] Est Average Glucose 228.8 mg/dL 08/26/2024 12:08 PM [employer] [facility] Blood Venipuncture / Unknown 08/26/2024 8:40 AM [employer] 08/26/2024 8:51 AM [employer] Narrative [facility] - 08/26/2024 12:08 PM [employer] HEMOGLOBIN A1C: DIABETIC PATIENTS: WELL-CONTROLLED: 6.2 - 7.0 INTERMEDIATE WELL-CONTROLLED: 7.0 - 9.0 POORLY-CONTROLLED: >9.0 Syl Cowan MD CHEMISTRY ORDERABLES Final Res ult [facility] [address] [place] [address] from Last 3 Months or Most Recently Relevant to Health Maintenance Insurance [employer] Advance Directives * Full Code (Latest Code Status on File) Date Activated Date Inactivated Comments 08/26/2024 11:53 AM CPR-Full Charley tment: FULL ARREST: Attempt Resuscitation/CPR wit intubation and mechanical ventilation. PRE-ARREST: Use entire range of life support measures to stabilize the patient. * Full Code Date Activated Date Inactivated Comments 05/20/2024 10:45 PM 08/26/2024 11:53 AM CPR-Full T reatment: FULL ARREST: Attempt Resuscitation/CPR wit intubation and mechanical ventilation. PRE-ARREST: Use entire range of life support measures to stabilize the patient. * Full Code Date Activated Date Inactivated Comments 04/29/2024 3:10 PM 05/20/2024 6:37 PM CPR-Full Charley tment: FULL ARREST: Attempt Resuscitation/CPR wit intubation and mechanical ventilation. PRE-ARREST: Use entire range of life support measures to stabilize the patient. * Full Code Date Activated Date Inactivated Comments 12/21/2021 1:22 PM 12/22/2021 4:42 PM CPR-Full Charley tment: FULL ARREST: Attempt Resuscitation/CPR wit intubation and mechanical ventilation. PRE-ARREST: Use entire range of life support measures to stabilize the patient. Care Teams Resident Manager Relationship Specialty Start Date End Date Joe Woody MD 4 [facility] [address] [place] [address] PCP - General Family Medicine 06/08/19 Matthew Guaman MD #[address] RAHEEM [facility] [address] [place] [address] Consulting Physician Urology 01/24/24 Toni Reeves MD 2 Trudy [facility]. [address] [place] [address] Consulting Physician Cardiology 10/16/24 Martina Sheldon APRN, [employer] [address] [place] [address] Nurse Practitioner Cardiology 12/29/24
--- OUTSIDE RECORDS SUMMARY | 2025-02-01 11:20 | XMS_ITS | Referral Summary ---
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 Name Role Phone Joe Woody MD Primary Care Provider [phone] Joe Woody MD Unavailable [phone] Unknown, Notinfile Unavailable Unavailable Belle Armas MD Unavailable Corbin Ayala MD Unavailable [phone] Slim Grove MD Unavailable [phone] Miscellaneous, Not In File Unavailable Unava ilable Encounters Date Type Department Care Team Description 01/19/2025 4:00 PM CDT Office Visit [facility] at [address] [place] [phone] Lacy Vail, [place] Type 2 diabetes mellitus with hyperglycemia, with long-term current use of insulin (HCC) (Primary Dx); Hypertension associated with type 2 diabetes mellitus (HCC); Mixed diabetic hyperlipidemia associated with type 2 diabetes mellitus (HCC); Class 3 severe obesity due to excess calories with serious comorbidity and body mass index (BMI) of 40.0 to 44.9 in adult (HCC); Dexcom continuous glucose monitoring device 01/08/2025 9:45 AM CDT Office Visit [facility] [address] [place] [address] [address] [place] [id number] Belle Armas MD Hypersomnia (Primary Dx); SHERRI (obstructive sleep apnea); Morbid obesity with BMI of 40.0-44.9, adult ([facility]) 11/06/2024 9:45 AM HEEL WHEELER Office Visit [facility] [address] [place] [address] [address] [place] [address] Belle Armas MD SHERRI (obstructive sleep apnea) (Primary Dx); Hypersomnia with sleep apnea; Morbid obesity with BMI of 40.0-44.9, adult ([facility]) from Last 3 Months Allergies Active Allergy Reactions Criticality Noted Date Comments Iodinated Contrast Media Shortness of breath High 04/16/2019 Pt states SOB, and vomiting with IV contrast Iodinated Contrast Media Unknown 06/15/2020 Metformin Diarrhea Low 09/28/2022 And abdominal pain Penicillins Rash Medium 05/05/2018 Penicillins Unknown 06/15/2020 Shrimp Hives Medium 04/15/2019 Shrimp Unknown 06/15/2020 Sulfa (Sulfonamide Antibiotics) Anaphylaxis High 05/05/2018 Sulfa (Sulfonamide Antibiotics) Rash Medium 04/15/2019 Sulfa (Sulfonamide Antibiotics) Unknown 06/15/2020 Medications losartan (COZAAR) 100 mg tablet Take 1 tablet (100 mg total) by mouth daily Active carBAMazepine (TEGretol) 200 mg tablet Take 1 tablet (200 mg total) by mouth 3 (three) times a day 01/20/20 22 Active naproxen (NAPROSYN) 500 mg tablet Take 1 tablet (500 mg total) by mouth 2 (two) times a day as needed for pain Active nortriptyline (PAMELOR) 25 mg capsuleIndica tions:Posther petic Neuralgia,dep ression Take 1 tablet by mouth at bedtime for 2 to 3 days.Then increase to 2 tablets by mouth at bedtime. 60 capsule 05/27/20 22 Active blood-glucose meter kit Use daily as directed for monitoring of blood sugar for diabetes e11.65 1 kit 1 09/28/19 23 Active lancets misc Use to check blood sugar 2x/day. E11.65 200 each 2 09/28/19 23 Active blood glucose diagnostic (OneTouch Verio test strips) strip CHECK BLOOD SUGAR 2X TIMES A DAY 50 strip 11 10/21/19 24 Active atorvastatin (LIPITOR) 80 mg tabletIndicat ions:Secondar y Stroke Prevention Take 1 tablet (80 mg total) by mouth daily 30 tablet 11 11/06/19 24 Active pen needle, diabetic (BD Ultra-Fine Raisa Pen Needle) 32 gauge x 532 needleIndicat ions:Type 2 diabetes mellitus with hyperglycemia , with long-term current use of insulin (HCC) Use as directed to inject levemir insulin twice a day. E11.65 200 each 3 12/13/19 24 Active ezetimibe (ZETIA) 10 mg tablet Take 1 tablet (10 mg total) by mouth daily 90 tablet 3 01/31/20 24 Active ALPRAZolam (XANAX) 0.25 mg tablet Take 1 tablet (0.25 mg total) by mouth 2 (two) times a day as needed for anxiety 01/20/20 24 Active cetirizine (ZyrTEC) 10 mg tablet Take 1 tablet (10 mg total) by mouth daily 02/11/20 24 Active escitalopram (LEXAPRO) 10 mg tablet Take 1 tablet (10 mg total) by mouth every morning 02/11/20 24 Active methocarbamoL (ROBAXIN) 750 mg tablet Take 1 tablet (750 mg total) by mouth 3 (three) times a day 01/16/20 24 Active spironolacton e (ALDACTONE) 25 mg tablet Take 1 tablet (25 mg total) by mouth 2 (two) times a day 02/18/20 24 Active metoprolol XL (TOPROL-XL) 100 mg 24 hr tablet Take 1 tablet (100 mg total) by mouth daily Active amLODIPine (NORVASC) 10 mg tablet Take 1 tablet (10 mg total) by mouth daily Active busPIRone (BUSPAR) 15 mg tabletIndicat ions:Generali zed Anxiety Disorder Take 1 tablet (15 mg total) by mouth 3 (three) times a day Active tiZANidine (ZANAFLEX) 4 mg tablet Take 1 tablet (4 mg total) by mouth 2 (two) times a day Active aspirin 81 mg chewable tablet Take 1 tablet (81 mg total) by mouth daily 30 tablet 11 03/01/20 24 025 Active butalbital-ac etaminophen-c affeine (ESGIC) 50-325-40 mg per tablet Take 1 tablet by mouth every 6 (six) hours as needed for headaches 28 tablet 02/29/20 24 Active diphenhydrAMI NE (BENADRYL) 25 mg capsule Take 2 tablets by mouth at bedtime the night before the procedure and 2 tablets by mouth the morning of the procedure 4 tablet/caps ule 05/08/20 24 Active famotidine (PEPCID) 20 mg tablet Take one tablet by mouth at bedtime the night before the procedure and one tablet by mouth the morning of the procedure. 2 tablet 05/08/20 24 Active pen needle, diabetic (BD Ultra-Fine Short Pen Needle) 31 gauge x 5/16 needle INSTRUCTED- USE 4 TIMES DAILY WITH INSULIN PENS 400 each 11 09/21/20 24 Active insulin glargine 100 unit/mL (3 mL) pen for injection Inject 40 Units under the skin 2 (two) times a day before breakfast and dinner E11.65 60 mL 3 01/20/20 25 Active tirzepatide (Mounjaro) 5 mg/0.5 mL pen injector injection Inject 0.5 mL (5 mg total) under the skin every 7 days For 4 doses. Then increase to mounjaro 7.5mg weeekly. E11.65. switching from Trulicity. 2 mL 01/20/20 25 Active tirzepatide (Mounjaro) 7.5 mg/0.5 mL pen injector injectionIndi cations:type 2 diabetes mellitus Inject 0.5 mL (7.5 mg total) under the skin every 7 days For 4 doses. Then increase to mounjaro 10mg weeekly. E11.65. switching from Trulicity. 2 mL 01/20/20 25 Active tirzepatide (Mounjaro) 10 mg/0.5 mL pen injector injectionIndi cations:type 2 diabetes mellitus Inject 0.5 mL (10 mg total) under the skin every 7 days For 4 doses. Then increase to mounjaro 10 mg weeekly. E11.65. switching from Trulicity. 2 mL 11 01/20/20 25 Active Dexcom G7 Sensor device 1 Device continuously . Change every 10 days. E11.65 10 each 3 01/20/20 25 Active insulin glargine 100 unit/mL (3 mL) pen for injection Inject 35 Units under the skin 2 (two) times a day before breakfast and dinner E11.65 60 mL 3 06/26/20 24 025 Discontinued(R eorder) dulaglutide (Trulicity) 3 mg/0.5 mL pen injectorIndic ations:type 2 diabetes mellitus Inject 0.5 mL (3 mg total) under the skin every 7 days E11.65 6 mL 3 06/26/20 24 025 Discontinued Active Problems Problem Noted Date Diagnosed Date Dexcom continuous glucose monitoring device 12/23 Assessment & Plan (01/19/2025 4:29 PM CDT): Continuous glucose monitor (cgm) applied from 01/06/25 to 01/19/25. This device was placed for monitor and treatment of blood sugar. Interpretation of data- average glucose 342. 1% time in range. 0 hypoglycemia. 99% hyperglycemia Angina pectoris, unstable 04/03/2024 Mixed diabetic hyperlipidemi a associated with type 2 diabetes mellitus 02/29/2024 Assessment & Plan (01/19/2025 4:13 PM CDT): This is a chronic condition which is elevated, not at goal . Goal is LDL less than 70 Continue atorvastatin, Zetia Encouraged to eat healthy, include fresh fruits and vegetables daily and avoid eating fried foods more than once per week. Assessment & Plan (06/26/2024 8:56 AM CDT): This is a chronic condition which is at goal . Goal is LDL less than 70 Continue atorvastatin, Zetia Encouraged to eat healthy, include fresh fruits and vegetables daily and avoid eating fried foods more than once per week. Assessment & Plan (05/17/2023 2:01 PM CDT): This is a chronic condition which is not at goal of LDL less than 70 Continue atorvastatin Encouraged to eat healthy, include fresh fruits and vegetables daily and avoid eating fried foods more than once per week. Encouraged to take medications as prescribed. Assessment & Plan (01/25/2023 9:36 AM CDT): This is a chronic condition which is at goal of LDL less than 70 Continue atorvastatin Encouraged to eat healthy, include fresh fruits and vegetables daily and avoid eating fried foods more than once per week. Encouraged to take medications as prescribed. Assessment & Plan (09/28/2022 4:47 PM HEEL WHEELER): This is a chronic condition which is improving, but not at goal. Goal is less than 70. Personally reviewed lipid panel. Continue atorvastatin. Lab Results Component Value Date LDLCALC 89 05/25/2022 Encouraged to eat healthy, include fresh fruits and vegetables daily and avoid eating fried foods more than once per week. Encouraged to take medications as prescribed. Assessment & Plan (06/22/2022 12:07 PM CDT): This is a chronic condition which is improving, but not at goal. Goal is less than 70. Personally reviewed lipid panel. Continue atorvastatin. Lab Results Component Value Date LDLCALC 89 05/25/2022 Encouraged to eat healthy, include fresh fruits and vegetables daily and avoid eating fried foods more than once per week. Encouraged to take medications as prescribed. Assessment & Plan (03/31/2022 8:05 AM CDT): This is a chronic condition which is improving, but not at goal. Goal is less than 70. Personally reviewed lipid panel. Continue atorvastatin. Lab Results Component Value Date LDLCALC 102 01/23/2022 Encouraged to eat healthy, include fresh fruits and vegetables daily and avoid eating fried foods more than once per week. Encouraged to take medications as prescribed. Assessment & Plan (03/02/2022 3:54 PM CDT): This is a chronic condition which is improving but not at goal. Goal is less than 70. Personally reviewed lipid panel. Continue atorvastatin 40 mg daily. Not at Goal of less than 70 Encouraged to eat healthy, include fresh fruits and vegetables daily and avoid eating fried foods more than once per week. Encouraged to take medications as prescribed. Assessment & Plan (01/19/2022 1:15 PM CDT): This is a chronic condition which is [...] week. Encouraged to take medications as prescribed. Assessment & Plan (12/08/2021 5:06 PM CDT): This is a chronic condition which is [...] week. Encouraged to take medications as prescribed. Assessment & Plan (08/11/2021 4:41 PM HEEL WHEELER): This is a chronic condition which is [...] week. Encouraged to take medications as prescribed. Assessment & Plan (05/05/2021 5:35 PM CDT): This is a chronic condition which is not at goal. Goal is less than 70. Personally reviewed POC lipid panel. Cholesterol 256, HDL 35, triglycerides-396, LDL - 142, atorvastatin 40 mg ordered but he states that he has not been taking it because the pharmacy would not refill it. Refill provided. Not at Goal of less than 70 Encouraged to eat healthy, include fresh fruits and vegetables daily and avoid eating fried foods more than once per week. Encouraged to take medications as prescribed. 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 Weight loss since last office visit Encouraged healthy eating which includes a low carb diet. Avoiding processed foods, sweets and fried foods. Encouraged 30 minutes of walking at least 5 days per week Discussed that exercise can be broken down into small sessions- for example 2- 15 minutes sessions or 3- 10 minutes sessions. Switch Trulicity to metformin to promote weight loss Assessment & Plan (06/26/2024 8:57 AM CDT): This is a chronic condition which continues 1 lbs. Weight loss since last office visit Encouraged healthy eating which includes a low carb diet. Avoiding processed foods, sweets and fried foods. Encouraged 30 minutes of walking at least 5 days per week Discussed that exercise can be broken down into small sessions- for example 2- 15 minutes sessions or 3- 10 minutes sessions. Assessment & Plan (05/17/2023 2:02 PM CDT): This is a chronic condition which continues 4 lb weight gain since his last office visit Encouraged to continue Trulicity 3 mg weekly Encouraged weight loss and healthy eating Assessment & Plan (01/25/2023 9:37 AM CDT): This is a chronic condition which is improving Decreased 8 lb since last office visit Increased Trulicity to help promote further weight loss Assessment & Plan (06/22/2022 12:10 PM CDT): This is a chronic condition which is improved 6 lb weight loss since last office visit Encourage continue weight loss and exercise Assessment & Plan (01/19/2022 3:00 PM CDT): Encouraged weight loss and exercise. Body mass index 40.0-44.9, adult (CMS/HCC) 01/19 Assessment & Plan (01/25/2023 9:36 AM CDT): This is a chronic condition which is improving Decreased 8 lb since last office visit Increase Trulicity to 3 mg weekly Encourage continue weight loss Assessment & Plan (09/28/2022 4:46 PM HEEL WHEELER): This is a chronic condition which is improved 13 lb weight loss since last office visit Encourage continue weight loss and exercise Declined to increase Trulicity as he feels his appetite is decreased Assessment & Plan (01/19/2022 3:00 PM CDT): Encouraged weight loss and exercise. 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 Goal is less than 140/90 Continue amlodipine, losartan, metoprolol, spironolactone Encouraged to monitor weight and B/P at home. Assessment & Plan (06/26/2024 8:56 AM CDT): This is a chronic condition which is at goal. Goal is less than 140/90 Continue amlodipine, losartan, metoprolol Encouraged to monitor weight and B/P at home. Assessment & Plan (05/17/2023 2:02 PM CDT): This is a chronic condition which is at goal of less than 140/90 Personally reviewed labs. Continue amlodipine, clonidine, losartan, metoprolol Encouraged to monitor weight and B/P at home Encouraged to take medications as prescribed. Assessment & Plan (01/25/2023 9:35 AM CDT): This is a chronic condition which is at goal of less than 140/90 Personally reviewed labs. Continue amlodipine, clonidine, losartan, metoprolol Encouraged to void caffeine and excessive alcohol consumption as this will elevate B/P Encouraged to monitor weight and B/P at home Explained correct way to take blood pressure. - After 5 minutes of sitting calmly with arm supported. Encouraged to take medications as prescribed. Assessment & Plan (09/28/2022 4:47 PM HEEL WHEELER): This is a chronic condition which is at goal Goal is <140/90. Is seeing Cardiology Personally reviewed labs. Continue on losartan, amlodipine, metoprolol Avoid caffeine, caffeine will raise blood pressure and excessive alcohol consumption. Monitor your weight and B/P. Encouraged to take medications as prescribed. Assessment & Plan (06/22/2022 12:08 PM CDT): This is a chronic condition which is at goal Goal is <140/90. Has appointment with Cardiology in June-encouraged to keep that appointment Personally reviewed labs. Continue on losartan, amlodipine, metoprolol Goal blood pressure is <140/90 Avoid caffeine, caffeine will raise blood pressure and excessive alcohol consumption. Monitor your weight and B/P. Encouraged to take medications as prescribed. Assessment & Plan (03/31/2022 7:58 AM CDT): This is a chronic condition which is at goal after rest. Goal is <140/90. Encouraged to monitor b/p and notify Dr. Woody if elevated blood pressure continues. Personally reviewed labs. B/P today- 132/74 after rest. Continue on losartan 100 mg daily and clonidine At Goal blood pressure is <140/90 and as close to 120/80 as possible. Avoid caffeine, caffeine will raise blood pressure and excessive alcohol consumption. Monitor your weight and B/P. Encouraged to take medications as prescribed. Assessment & Plan (01/19/2022 3:02 PM CDT): This is a chronic condition which is not at goal Goal is <140/90. Reports blood pressure medication was recently increased per Dr. Woody. Encouraged to monitor b/p and notify Dr. Woody if elevated blood pressure continues. Personally reviewed labs. B/P today- 150/90- after 5 minutes of rest 152/106 , currently on losartan 100 mg daily. At Goal blood pressure is <140/90 and as close to 120/80 as possible. Avoid caffeine, caffeine will raise blood pressure and excessive alcohol consumption. Monitor your weight and B/P. Encouraged to take medications as prescribed. Assessment & Plan (08/11/2021 4:40 PM HEEL WHEELER): This is a chronic condition which is at goal Goal is <140/90. B/P today- 142/80 , currently on losartan 100 mg daily. Personally reviewed labs in care everywhere and media. Avoid caffeine, caffeine will raise blood pressure and excessive alcohol consumption. Monitor your weight and B/P. Encouraged to take medications as prescribed. Asthma without acute exacerbation 04/16/2019 Type 2 diabetes mellitus wit h hyperglycemia, with long-term current use of insulin 05/09/2018 Assessment & Plan (01/19/2025 4:29 PM CDT): This is a chronic condition which is improved from previous A1c of 11.7 but remains elevated, not at goal . Goal is less than 7%. Personally reviewed most recent A1c - Lab Results Component Value Date HGBA1C 9.7 01/19/2025 Personally reviewed POC blood sugar- elevated, not at goal of 80-180 Lab Results Component Value Date POCGLU 283 01/19/2025 Medication- increase Lantus 40 units twice daily, stop trulicity. Start mounjaro 5mg weekly for 4 doses, then increase mounjaro to 7.5mg weekly for 4 doses, then increase mounjaro 10mg weekly stop metformin due to diarrhea and abdominal pain He declines the use of a Omnipod/insulin pump Monitor blood sugar continuously with Dexcom 7 cgm. Encouraged annual eye exam. eGFR- greater than 90 Kidney function-normal, at goal Urine microalbumin/creatinine ratio - less than 10. Goal is <30. At goal Continue amlodipine, losartan, metoprolol, spironolactone Assessment & Plan (06/26/2024 8:56 AM CDT): This is a chronic condition which is uncontrolled, elevated, not at goal . Goal is less than 7%. Personally reviewed most recent A1c - Lab Results Component Value Date HGBA1C 11.7 06/26/2024 Personally reviewed POC blood sugar- not at goal, uncontrolled of 80-180 Lab Results Component Value Date POCGLU 325 06/26/2024 Medication- increase Lantus 35 units twice daily, continue trulicity 3mg weekly stop metformin due to diarrhea and abdominal pain Monitor blood sugar 2 times a day. Encouraged annual eye exam. eGFR- greater than 90 Kidney function-normal Urine microalbumin/creatinine ratio - at goal. Goal is <30 Continue amlodipine, losartan, metoprolol Assessment & Plan (06/26/2024 8:54 AM CDT): >>ASSESSMENT AND PLAN FOR TYPE 2 DIABETES MELLITUS WITHOUT COMPLICATION, WITH LONG-TERM CURRENT USE OF INSULIN ([facility] (HCC) WRITTEN ON 05/09/2018 2:19 AM BY ANA HARRELL MD On Amaryl and Glucophage. Will hold oral hypoglycemics. Start on Lantus 10 units at bedtime and medium sliding scale insulin. Assessment & Plan (05/17/2023 2:01 PM CDT): This is a chronic condition which is out of control, worsening not at goal of less than 7%. Personally reviewed most recent A1c - Lab Results Component Value Date HGBA1C 11.3 05/17/2023 Personally reviewed POC blood sugar- not at goal 80-180 Lab Results Component Value Date POCGLU 376 05/17/2023 Medication- Continue increase Levemir 30 units twice a day, continue Trulicity 3 mg weekly Monitor blood sugar 2 times a day. Encouraged annual eye exam. Monofilament foot exam completed. protective senses intact Personally reviewed CMP eGFR- 116 Kidney function- normal Urine microalbumin/creatinine ratio - at goal <30 treated with amlodipine, clonidine, losartan, metoprolol B/P today- at goal of <140/90. continue amlodipine, clonidine, losartan, metoprolol Personally reviewed lipid panel. Not at Goal of less than 70. Continue atorvastatin Assessment & Plan (01/25/2023 9:35 AM CDT): This is a chronic condition which is inadequately controlled, improving, not at goal of less than 7%. Personally reviewed most recent A1c - Lab Results Component Value Date HGBA1C 9.3 01/25/2023 Personally reviewed POC blood sugar- not at goal 80-180 Lab Results Component Value Date POCGLU 183 01/25/2023 Medication- Continue levemir 15 units twice a day, increase trulicity 3mg weekly. Not taking metformin due to abdominal pain and diarrhea Monitor blood sugar daily Encouraged annual eye exam. Monofilament foot exam completed. Loss of protective senses Urine microalbumin/creatinine ratio - at goal <30 treated with amlodipine, clonidine, losartan, metoprolol Personally reviewed CMP eGFR- 116 Kidney function- normal B/P today- at goal of <140/90. continue amlodipine, clonidine, losartan, metoprolol Personally reviewed lipid panel. Not at Goal of less than 70. Continue atorvastatin Assessment & Plan (09/28/2022 4:46 PM HEEL WHEELER): This is a chronic condition which is out of control, not at goal. goal less than 7% Personally reviewed most recent A1c - Lab Results Component Value Date HGBA1C 10.7 09/28/2022 Personally reviewed POC blood sugar- Lab Results Component Value Date POCGLU 418 09/28/2022 not at goal 80-180 Medication- increase Levemir 15 units twice daily, continue Trulicity 1.5 weekly, Not taking metformin due to abdominal pain and diarrhea Monitor blood sugar daily. Encouraged annual eye exam. Monofilament foot exam completed. protective senses not intact Urine microalbumin/creatinine ratio - 11. at goal <30 not treated with losartan, metoprolol, amlodipine Personally reviewed CMP GFR- 116 Kidney function- normal B/P today- not at goal. Goal is <140/90 continue on losartan, amlodipine, metoprolol Personally reviewed lipid panel. Not at Goal of less than 70. Continue on atorvastatin Assessment & Plan (06/22/2022 12:09 PM CDT): This is a chronic condition which is improving, but not at goal. goal less than 7% Personally reviewed most recent A1c - Lab Results Component Value Date HGBA1C 7.6 06/22/2022 Personally reviewed POC blood sugar- Lab Results Component Value Date POCGLU 182 06/22/2022 not at goal 80-180 Medication- Continue Levemir 15 units, Trulicity 1.5 weekly, metformin 100 mg b.i.d. Monitor blood sugar daily. Encouraged annual eye exam. Monofilament foot exam completed. protective senses not intact Urine microalbumin/creatinine ratio - 11. at goal <30 not treated with losartan, metoprolol, amlodipine Personally reviewed CMP GFR- 118 Kidney function- normal B/P today- not at goal. Goal is <140/90 continue on losartan, amlodipine, metoprolol Personally reviewed lipid panel. Not at Goal of less than 70. Continue on atorvastatin Assessment & Plan (03/31/2022 8:03 AM CDT): This is a chronic condition which is not at goal. Personally reviewed A1c -10.3%. Not at goal less than 7% Personally reviewed blood sugar -109. at goal 80-180 Medication- Continue Lantus 15 units daily, metformin 1000mg twice daily,increase trulicity 1.5mg weekly on saturday Monitor blood sugar 2x times a day.- wears Dexcom 6 Encouraged annual eye exam. Eye exam needed Monofilament foot exam completed, loss of protective senses. Treated with Gabapentin. Urine microalbumin/creatinine ratio - 11 mg/g currently losartan 100 mg daily ,at goal <30 Personally reviewed labs: per care everywhere. BUN- 9, creatinine-0.63 GFR->60 Kidney function- normal B/P today- 136/76 after 5 minutes of rest. - continue Losartan, clonidine daily. At Goal blood pressure is <140/90 and as close to 120/80 as possible. Personally reviewed LDL - 102 continue atorvastatin. Not at Goal of less than 70 History of macrovascular disease -coronary artery disease. Continuous glucose monitor (cgm) applied from 03/17/2022 to 03/30/2022 This device was placed for monitor and treatment of blood sugar. Interpretation of data- In target 51% of the time with current treatment. Post pranial rise after meals noted. Mild hypoglycemia>54. Increase trulicity. Assessment & Plan (03/02/2022 3:53 PM CDT): This is a chronic condition which is not at goal. Personally reviewed A1c -10.3%. Not at goal less than 7% Personally reviewed blood sugar -266. Not at goal 80-180 Medication- Continue Lantus 30 units daily, Humalog 10 units prior to meals. Encouraged to use Omnipod system. Continue metformin 1000mg twice daily, and start trulicity 0.75mg weekly on saturday Monitor blood sugar 4x times a day. Encouraged annual eye exam. Eye exam needed Monofilament foot exam completed, loss of protective senses. Treated with Gabapentin. Increased- no relieft in symptoms. Urine microalbumin/creatinine ratio - 11 mg/g currently losartan 100 mg daily ,at goal <30 Personally reviewed labs: per care everywhere. BUN- 9, creatinine-0.63 GFR->60 Kidney function- normal B/P today- 124/78- continue Losartan, clonidine daily. At Goal blood pressure is <140/90 and as close to 120/80 as possible. Personally reviewed LDL - 102 continue atorvastatin. Not at Goal of less than 70 History of macrovascular disease -coronary artery disease. Assessment & Plan (01/19/2022 3:00 PM CDT): This is a chronic condition which is not at goal. Personally reviewed A1c -10.8%. Not at goal less than 7% Personally reviewed blood sugar -338. Not at goal 80-180 Medication- Continue Lantus 25 units daily, Humalog 10 units prior to meals. Encouraged to use [employer] system Monitor blood sugar 4x times a day. Encouraged annual eye exam. Eye exam needed Monofilament foot exam completed, loss of protective senses. Treated with Gabapentin. Increased- no relieft in symptoms. Urine microalbumin/creatinine ratio - 80 mg/g currently losartan 100 mg daily , not at goal <30 Personally reviewed labs: per care everywhere. BUN- 9, creatinine-0.63 GFR->60 Kidney function- normal B/P today- 150/90- after 5 minutes of rest 152/106 , currently on losartan 100 mg daily. At Goal blood pressure is <140/90 and as close to 120/80 as possible. Personally reviewed LDL - 142 (05/05/21) see media. On atorvastatin. Not at Goal of less than 70 History of macrovascular disease -coronary artery disease. Assessment & Plan (12/08/2021 5:06 PM CDT): This is a chronic condition which is not at goal. Personally reviewed A1c -10.8%. Not at goal less than 7% Personally reviewed blood sugar -260. Not at goal 80-180 Medication- Continue Lantus 25 units daily, Humalog 10 units prior to meals. Will re try Omnipod system Monitor blood sugar 4x times a day. Encouraged annual eye exam. Eye exam needed Monofilament foot exam completed, loss of protective senses. Treated with Gabapentin. Increased- no relieft in symptoms. Urine microalbumin/creatinine ratio - 80 mg/g currently losartan 100 mg daily , not at goal <30 Personally reviewed labs: per care everywhere. BUN- 9, creatinine-0.63 GFR->60 Kidney function- normal B/P today- 142/80 , currently on losartan 100 mg daily. At Goal blood pressure is <140/90 and as close to 120/80 as possible. Personally reviewed LDL - 142 (05/05/21) see media. On atorvastatin. Not at Goal of less than 70 History of macrovascular disease -coronary artery disease. Assessment & Plan (08/11/2021 4:37 PM HEEL WHEELER): This is a chronic condition which is not at goal. Personally reviewed A1c -11.2%. Not at goal less than 7% Personally reviewed blood sugar -517, postprandial. Not at goal 80-180 Medication- Continue Lantus 25 units daily, Humalog 10 units prior to meals. Hold insulin for blood sugars less than 100. Training for Omnipod system is 08/22 at 2:30 Monitor blood sugar 4x times a day. Encouraged annual eye exam. Eye exam needed Monofilament foot exam completed, loss of protective senses. Treated with Gabapentin. Increased- no relieft in symptoms. Urine microalbumin/creatinine ratio - 80 mg/g currently losartan 100 mg daily , not at goal <30 Personally reviewed labs: per care everywhere. BUN- 9, creatinine-0.63 GFR->60 Kidney function- normal B/P today- 142/80 , currently on losartan 100 mg daily. At Goal blood pressure is <140/90 and as close to 120/80 as possible. Personally reviewed LDL - 142 (05/05/21) see media. atorvastatin 40 mg ordered but he states that he has not been taking it because the pharmacy would not refill it. Refill provided. Not at Goal of less than 70 History of macrovascular disease -coronary artery disease. Assessment & Plan (05/05/2021 5:34 PM CDT): This is a chronic condition which is not at goal. Personally reviewed A1c -8.1%. Not at goal less than 7% Personally reviewed blood sugar -210, postprandial. Not at goal 80-180 Medication- Continue Lantus 25 units daily, Humalog 10 units prior to meals. Hold insulin for blood sugars less than 100 Monitor blood sugar 4x times a day. Encouraged annual eye exam. Eye exam needed Monofilament foot exam completed, loss of protective senses. Treated with Gabapentin. States his lower legs feel like he has fire ants on them. Urine microalbumin/creatinine ratio - 30-300 mg/g currently losartan 100 mg daily , not at goal <30 Personally reviewed labs: BUN- 16, creatinine-0.62 GFR-121 Kidney function- normal B/P today- 130/80 , currently on losartan 100 mg daily. At Goal blood pressure is <140/90 and as close to 120/80 as possible. Personally reviewed LDL - 142, atorvastatin 40 mg ordered but he states that he has not been taking it because the pharmacy would not refill it. Refill provided. Not at Goal of less than 70 History of macrovascular disease -coronary artery disease. 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) 04/16/2019 01/19/2022 At risk for obstructive sleep apnea 04/16/2019 05/05/2021 Left upper quadrant pain 04/16/2019 Hypertension 05/09/2018 05/05/2021 Assessment & Plan (05/09/2018 2:19 AM CDT): Continue with losartan. Coronary artery disease invo lving [place] coronary artery 05/09/2018 05/05/2021 Assessment & Plan (05/09/2018 2:20 AM CDT): Reportedly patient with history of 2 heart attacks. Continue with losartan. Continue aspirin and statin Morbid obesity ([facility]) 05/09/2018 Assessment & Plan (05/09/2018 2:21 AM CDT): BMI 44, Weight loss encouraged. Left upper quadrant pain 05/09/2018 Assessment & Plan (05/09/2018 2:23 AM CDT): So far unclear etiology. UA is consistent with UTI. CT of the abdomen and pelvis negative for perinephric stranding. Discussed possible causes including early pyelo nephritis versus abdominal wall hernia versus sliding Hiatal hernia at [facility]. Patient was started on IV antibiotics Will continue with days. Urine culture and blood cultures are pending. Will follow up with results and adjust antibiotics as needed. Trend daily CBC Sepsis secondary to UTI ([facility]) 05/09/2018 05/05/2021 Assessment & Plan (05/09/2018 2:28 AM CDT): Patient meets the criteria for sepsis secondary to UTI with elevated white cell count , no hypotension. Currently on ciprofloxacin. Continue with IV antibiotics Repeat lactic acid levels. Trend daily CBC Cultures are pending. Will follow up with urine and blood culture results. Strict I&Os Pyelonephritis 05/05/2021 Chest pain 05/05/2021 Immunizations Immunization Administration Dates Next Due Influenza, Quadrivalent, Spl it, Preservative Free, Intramuscular 10/08/2019 Influenza, Unspecified 07/01/2020 Social History Tobacco Use Types Packs/Day Years Used Date Smoking Tobacco: Never Smokeless Tobacco: Never Tobacco Cessation:Counseling Given: Not Answered Alcohol Use Standard Drinks/Week Comments Never 0 (1 standard drink = 0.6 oz pur e alcohol) [facility] Utilities Answer Date Recorded In the past 12 months has [employer], [employer], or [employer] threatened to shut off services in your home? No 02/28/2024 Social Connection and Isolat ion Panel [NHANES] Answer Date Recorded In a typical week, how many times do you talk on the phone with family, friends, or neighbors? More than three times a week 02/28/2024 How often do you get togethe r with friends or relatives? More than three times a week 02/28/2024 How often do you attend chur ch or protestant services? More than 4 times per year 02/28/2024 Do you belong to any clubs o r organizations such as religion groups, unions, fraternal or athletic groups, or school groups? No 02/28/2024 How often do you attend meet ings of the clubs or organizations you belong to? Never 02/28/2024 Are you , , di vorced, , never , or living with a partner? 02/28/2024 AUDIT-C Answer Date Recorded Q1: How often do you have a drink containing alcohol? Never 02/27/2024 Q2: How many drinks containi ng alcohol do you have on a typical day when you are drinking? Patient does not drink Q3: How often do you have si x or more drinks on one occasion? Never 02/27/2024 Overall Financial Resource Strain (CARDIA) Answe r Date Recorded How hard is it for you to pa y for the very basics like food, housing, medical care, and heating? Hard 02/28/2024 PHQ-2 Answer Date Recorded PHQ-2 Total Score (If total score is 3 or more points, staff should administer the PHQ-9) 0 11/04/2023 Hunger Vital Sign Answer Date Recorded Within the past 12 months, y ou worried that your food would run out before you got the money to buy more. Sometimes true Within the past 12 months, t he food you bought just didn't last and you didn't have money to get more. Sometimes true 03/2024 PRAPARE - Transportation Answer Date Re corded In the past 12 months, has l ack of transportation kept you from medical appointments or from getting medications? No 03/2024 In the past 12 months, has l ack of transportation kept you from meetings, work, or from getting things needed for daily living? No 02/28/2024 Housing Stability Vital Sign Answer James e Recorded In the last 12 months, was t here a time when you were not able to pay the mortgage or rent on time? No 02/28/2024 In the past 12 months, how m any times have you moved where you were living? 0 02/28/2024 At any time in the past 12 m [facility], were you homeless or living in a intermediate (including now)? No 02/28/2024 Personal Safety Answer Date Recorded Have you ever been in or are you currently in a harmful physical or emotional relationship or is someone making you feel afraid or unsafe? Denies 02/27/2024 Education Answer Date Recorded What is the highest level of school you have completed or the highest degree you have received? 4th grade 02/28/2024 Sex and Gender Information Value Date Recorded Sex Assigned at Not on file Legal Sex Male 12:02 PM CDT Gender Identity Not on file Sexual Orientation Not on file Last Filed Vital Signs Vital Sign Reading Time Taken Comments Blood Pressure 122/70 01/19/2025 3:13 PM CDT Pulse 59 01/08/2025 9:15 AM CDT Temperature 36.4 C (97.5 F) 02/29/2024 3:05 PM CDT Respiratory Rate 18 04/03/2024 11:2 5 AM CDT Oxygen Saturation 97% 01/08/2025 9:15 AM CDT Inhaled Oxygen Concentration - - Weight 119.8 kg (264 lb 3.2 oz) 01/19/2025 3:13 PM CDT Height 172.7 cm (5' 8 ) 01/19/2025 3:13 PM CDT Body Mass Index 40.17 01/19/2025 3:13 PM CDT Plan of Treatment Not on file Medical Devices Explanted Type Area Bundler Seasonal Greenery Device Identifier Shelf Expiration Date Model / Serial / Lot [employer] [id number] Inlay [place] 6fr 24cm Pusher Fluoro Marker Atraumatic Insertion Latex Free - [id number] Implanted:Qty: 1 on 06/10/2020 by Broderick Ramsey MD at [facility] Explanted:Qty: 1 on 07/01/2020 by Charles Smith MD Stent Left: Ureter [employer] [id number] 01/29/2024 [id number] / / [id number] Procedures Procedure Name Priority Date/Time Associated Diagnosis Comments POCT HEMOGLOBIN A1C Routine 01/19/2025 3 :20 PM CDT Type 2 diabetes mellitus with hyperglycemia, with long-term current use of insulin (HCC) POCT GLUCOSE Routine 01/19/2025 3:14 PM CDT Type 2 diabetes mellitus with hyperglycemia, with long-term current use of insulin (HCC) EGFR Routine 06/26/2024 8:50 AM CDT Type 2 diabetes mellitus with hyperglycemia, with long-term current use of insulin (HCC) LIPID PANEL Routine 06/26/2024 8:50 AM CDT Type 2 diabetes mellitus with hyperglycemia, with long-term current use of insulin (HCC) ALBUMIN CREATININE RATIO, URINE Routine 06/26/2024 8:50 AM CDT Type 2 diabetes mellitus with hyperglycemia, with long-term current use of insulin (HCC) COLONOSCOPY 12/11/2023 7:26 AM CDT from Last 3 Months or Most Recently Relevant to Health Maintenance Results * (ABNORMAL) POCT hemoglobin A1c (01/19/2025 3:20 PM CDT) Hemoglobin A1C, POC 9.7 4.0 - 5.6 % Blood 01/19/2025 3:20 PM CDT us Lacy Vail NP POINT OF CARE TEST ORDERABLES F inal Result * POCT glucose (01/19/2025 3:14 PM CDT) Glucose Blood, POC 283 mg/dL Blood 01/19/2025 3:14 PM CDT us Lacy Vail NP POINT OF CARE TEST ORDERABLES F inal Result * eGFR (06/26/2024 8:50 AM CDT) eGFR >90 >=60 mL/min/1. 73 m2 Comment: Interpretive Data Reference Interval Normal >/= 90 mL/min/1.73m2 Mildly decreased* 60 - 89 mL/min/1.73m2 Mildly to moderately decreased 45 - 59 mL/min/1.73m2 Moderately to severely decreased 30 - 44 mL/min/1.73m2 Severely decreased 15 - 29 mL/min/1.73m2 Kidney Failure < 15 mL/min/1.73m2 *Relative to young adult level Estimated glomerular filtration rate is determined by the 2020 CKD-EPI equation recommended by the National Kidney Foundation (A Unifying Approach to GFR Estimation: Recommendations of the NKF-ASK Task Force on Reassessing the Inclusion of Race in Diagnosing Kidney Disease, JASN 2020). The CKD-EPI equation should not be used for patients with unstable renal function and has not been validated in children and those over 70. Current interpretive data was last reviewed 2021. Blood 06/26/2024 8:50 AM CDT 06/26/2024 6:21 PM CDT us Lacy Vail NP LAB BLOOD ORDERABLES Final Resu lt [facility] [id number] [place] [address] * Albumin Creatinine Ratio, Urine (06/26/2024 8:50 AM CDT) Albumin Ur <12.0 mg/L Comment: Interpretive Data No reference range established. Current interpretive data was last revised 2019. Creatinine Ur 124.6 mg/dL [facility] WILL Comment: Interpretive Data No reference range established. Current interpretive data was last revised 2019. Albumin Creatinine Ratio, Ur <10 1 - 29 mg/g [facility] WILL Urine 06/26/2024 8:50 AM CDT 06/26/2024 6:19 PM CDT us Lacy Vail NP LAB URINE ORDERABLES Final Resu lt [facility] [id number] [place] [address] * Lipid panel (06/26/2024 8:50 AM CDT) Cholesterol 185 30 - 199 mg/dL Comment: Interpretive Data Ages < or = 19 years Acceptable: <170 mg/dL Borderline high: 170-199 mg/dL High: >or= 200 mg/dL Ages > or = 20 years Desirable: <200 mg/dL Borderline high: 200-239 mg/dL High: >or= 240 mg/dL Literature References: 1. Expert Panel on Integrated Guidelines for Cardiovascular Health and Risk Reduction in Children and Adolescents. Pediatrics 2011;128:S213 2. NCEP Expert Panel. Circulation 2004;110:227 Current Interpretive Data was last revised on 2018. Triglycerides 126 <=149 mg/dL [facility] WILL Comment: Interpretive Data Ages < or = 9 years Acceptable: <75 mg/dL Borderline high: 75-99 mg/dL High: >or= 100 mg/dL Ages 10 to 20 years Acceptable: <90 mg/dL Borderline high: 90-129 mg/dL High: >or= 130 mg/dL Ages > or = 20 years Desirable: <150 mg/dL Borderline high: 150-199 mg/dL High: 200-499 mg/dL Very high: >or= 499 mg/dL Literature References: 1. Expert Panel on Integrated Guidelines for Cardiovascular Health and Risk Reduction in Children and Adolescents. Pediatrics 2011;128:S213 2. NCEP Expert Panel. Circulation 2004;110:227 Current Interpretive Data was last revised on 2018. HDL 52 >=40 mg/dL [facility] WILL Comment: Interpretive Data Ages < or = 19 years Acceptable: >45 mg/dL Borderline low: 40-45 mg/dL Low: <40 mg/dL Ages > or = 20 years Desirable: >or= 60 mg/dL Low: <40 mg/dL Literature References: 1. Expert Panel on Integrated Guidelines for Cardiovascular Health and Risk Reduction in Children and Adolescents. Pediatrics 2011;128:S213 2. NCEP Expert Panel. Circulation 2004;110:227 Current Interpretive Data was last revised on 2018. LDL, calculated 111 <=129 mg/dL [facility] WILL Comment: Interpretive Data Ages < or = 19 years Acceptable: <110 mg/dL Borderline high: 110-129 mg/dL High: >or= 130 mg/dL Ages > or = 20 years Optimal: <100 mg/dL Near optimal: 100-129 mg/dL Borderline high: 130-159 mg/dL High: >160 mg/dL Calculated using the Mohamud LDL-C estimating equation. This equation was implemented on 2024. Prior to this date LDL-C was estimated using the Friedewald equation. Literature References: 1. Expert Panel on Integrated Guidelines for Cardiovascular Health and Risk Reduction in Children and Adolescents. Pediatrics 2011;128:S213 2. NCEP Expert Panel. Circulation 2004;110:227 3. Mohamud Davis et al. JERE Cardiol. 2019January 21;5(5):540-548. doi: 10.1001/jamacardio.2020.0013 Current Interpretive Data was last revised on 2024. Non-HDL Cholesterol 133 mg/dL [facility] Comment: Interpretive Data Ages < or = 19 years Acceptable: <120 mg/dL Borderline high: 120-144 mg/dL High: >145 mg/dL Ages > or = 20 years When triglycerides are >200 mg/dL, Non-HDL cholesterol is a secondary target of therapy with treatment goals that are 30 mg/dL greater than the LDL cholesterol target. Literature References: 1. Expert Panel on Integrated Guidelines for Cardiovascular Health and Risk Reduction in Children and Adolescents. Pediatrics 2011;128:S213 2. NCEP Expert Panel. Circulation 2004;110:227 Current Interpretive Data was last revised on 2018. Chol/HDL ratio 4 [facility] Blood 06/26/2024 8:50 AM CDT 06/26/2024 6:19 PM CDT Narrative [facility] - 06/26/2024 6:45 PM CDT These lab test should be done fasting. This means do not eat or drink for at least 12 hours prior to getting your blood drawn. Has the patient been fasting for 8 hours or more?->Yes us Lacy Vail PEST CONTROL SERVICE TECHNICIAN LAB [place]LO[place] [id number] [address] Department [place] [address] * Colonoscopy (12/11/2023 7:26 AM CDT) Anatomical Region Laterality Modality Other Narrative Procedure Note Vamsi Lewis MD - 12/11/2023 7:26 AM CDT [facility] Patient Name: Danny Blevins Procedure Date: 12/11/2023 7:26 AM Date of : 1975 Admit Type: Outpatient Age: 48 Gender: Male Attending MD: Vamsi Lewis M.D. Room: [facility] ENDOSCOPY ROOM 3 Note Status: Finalized Patient Profile: Refer to note in patient chart for documentation of history and physical. Procedure: Colonoscopy Indications: High risk colon cancer surveillance: Personalhistory of colonic polyps, Last colonoscopy: August2023 Referring MD: Joe Woody M.D. Providers: Vamsi Lewis M.D. Impression: - Hemorrhoids found on perianal exam. - The entire examined colon is normal. - No specimens collected. Recommendation: - Discharge patient to home. - Resume previous diet. - Continue present medications. - Repeat colonoscopy in 5 years for surveillance. - Return to primary care physician as previously scheduled. Medicines: Propofol per Anesthesia Complications: No immediate complications. Estimated Blood Loss: Estimated blood loss: none. Procedure: Pre-Anesthesia Assessment: - This assessment was completed [Time ofAssessment] prior to the administration of sedation. The benefits, risks and alternatives of theprocedure and sedation were discussed and informed consentwas obtained. All questions were answered. Please referto the signed informed consent document in the medical record. The bowel preparation used was Miralax and bisacodyl tablets via split dose instruction. The scope was passed under direct vision. TheColonoscope [id number] was introduced through the anus and advanced to the the cecum, identified by appendiceal orifice and ileocecal valve. The colonoscopy was performed without difficulty. The patient tolerated the procedure well. The qualityof the bowel preparation was adequate to identifypolyps 6 mm and larger in size. The ileocecal valve, appendiceal orifice, and rectum werephotographed. Findings: Hemorrhoids were found on perianal exam. The colon (entire examined portion) appeared normal. Electronically signed by Vamsi Lewis M.D. Vamsi Lewis M.D. 12/11/2023 9:03:00 AM Number of Addenda: 0 Note Initiated On: 12/11/2023 7:26 AM Procedure Code(s): --- Professional --- G0105, Colorectal cancer screening; colonoscopy on individual at high risk --- Technical --- G0105, Colorectal cancer screening; colonoscopy on individual at high risk Diagnosis Code(s): --- Professional --- K64.9, Unspecified hemorrhoids Z86.010, Personal history of colonic polyps --- Technical --- K64.9, Unspecified hemorrhoids Z86.010, Personal history of colonic polyps CPT copyright 2020 [employer]. All rights reserved. The codes documented in this report are preliminary and upon auditing coder reviewmay be revised to meet current compliance requirements. Recognized by the [place] [employer] for promoting quality in endoscopy Vamsi Lewis MD ENDOSCOPY PROCEDURES Final Re sult from Last 3 Months or Most Recently Relevant to Health Maintenance Insurance [facility] H[facility] Advance Directives For more information, please contact: [phone] Documents on File Type Date Recorded Patient Electronics Manufacturer Expl anation ADVANCE DIRECTIVE 03/02/2024 12:03 PM Myesha r of [employer] Developer-Medical * Full Code (Latest Code Status on File) Date Activated Date Inactivated Comments 02/27/2024 5:35 PM 02/29/2024 10:45 PM * Full Code Date Activated Date Inactivated Comments 02/27/2024 4:10 PM 02/27/2024 5:35 PM * Full Code Date Activated Date Inactivated Comments 12/11/2023 7:35 AM 12/11/2023 1:53 PM * Full Code Date Activated Date Inactivated Comments 12/11/2023 7:35 AM 12/11/2023 7:35 AM * Full Code Date Activated Date Inactivated Comments 11/04/2023 6:20 AM 11/06/2023 1:42 AM Care Teams Hat Lining Blocker Relationship Specialty Start Date End Date Joe Woody MD PCP - General 06/15/20 Joe Woody MD 06/15/20 Unknown, Notinfile 04/15/19 Belle Armas MD Consulting Physician Neurology 04/17/19 Corbin Ayala MD Consulting Physician Gastroenterology 04/17/19 Slim Grove MD [address] [place] [address] [place] [address] Consulting Physician Neurology 03/04/20 Miscellaneous, Not In File 03/04/20
--- OUTSIDE RECORDS SUMMARY | 2025-02-01 11:20 | XMS_ITS | Clinical Summary ---
Author Organization [facility] Address [address] [place] [address] Care Team Providers Care Textile Colorist Dyer Name Role Phone Unavailable Primary Care Provider Unavailabl e Source Comments [facility] [place],non-owned Affiliates and Associated Physician Practices is amultiple site organization consisting of ambulatory clinics and hospital sitesin [place], [place], [place] and [place]. This disclosure is being madepursuant to the Care Everywhere program and may not contain all information available regarding this patient. Last updated 18.[facility] [place] Social History Tobacco Use Types Packs/Day Years Used Date Smoking Tobacco: Never Assessed Sex and Gender Information Value Date Recorded Sex Assigned at Not on file Legal Sex Male 1:01 PM CDT Gender Identity Not on file Sexual Orientation Not on file Plan of Treatment Health Maintenance Due Date Last Done Comments COLOGUARD (AGES 45-75) - COL ON CA SCREENING [address] COLONOGRAPHY - COLON CA SCREENING 1975 FIT - COLON CA SCREENING 1975 FLEX SIG - COLON CA SCREENING 1976 HIV SCREENING 02/11/1991 HEPATITIS C SCREENING 02/07/1994 DTAP/TDAP/TD VACCINES (1 - Tdap) 02/11/1995 HEPATITIS B VACCINE (1 of 3 - 19+ 3-dose series) 02/11/1995 COVID-19 VACCINE ( - 2023-2 5 season) 2024 09/14/2021, 01/02/2021, 12/05/2020 DEPRESSION SCREENING 09/23/2024 INFLUENZA VACCINE (Season Ended) 2025 09/14/2021, 07/01/2020, 10/08/2019 ZOSTER VACCINE (1 of 2) 02/11/2026 LIPID TESTING 04/30/2029 04/30/2024 COLONOSCOPY - COLON CA SCREENING 12/10/2033 12/11/2023 Colorectal Cancer Screening 12/10/2033 HIB VACCINE Aged Out No longer eligi ble based on patient's age to complete this topic HPV VACCINE Aged Out No longer eligi ble based on patient's age to complete this topic MENINGOCOCCAL (Group B) VACCINE SHARED DECISION-MAKING Aged Out No longer eligible based on patient's age to complete this topic MENINGOCOCCAL GROUPS A/C/Y/W VACCINE Aged Out No longer eligible b ased on patient's age to complete this topic PNEUMOCOCCAL VACCINE Aged Out No long er eligible based on patient's age to complete this topic [place] [address] [address] [place] [address] MEDICAID - OUT OF [facility] MEDICAID - OUT OF STATE [facility] MEDICAID - OUT OF [facility] MEDICAID - OUT OF [facility] MEDICAID - OUT OF STATE MEDICAID - OUT OF STATE MEDICAID - OUT OF [place] [address] [place] [address]
--- OUTSIDE RECORDS SUMMARY | 2025-02-01 11:20 | XMS_ITS | Clinical Summary ---
Author Organization [facility] Virtual Care Address [facility] [place] [address] Phone Care Team Providers Care Shipwright Apprentice Name Role Phone Joe Woody MD Primary Care Provider [phone] Joe Woody MD Unavailable [phone] Unknown, Notinfile Unavailable Unavailable Belle Armas MD Unavailable Corbin Ayala MD Unavailable [phone] Slim Grove MD Unavailable [phone] Miscellaneous, Not In File Unavailable Unava ilable Allergies Active Allergy Reactions Criticality Noted Date [...] Ultra-Fine Raisa Pen Needle) 32 gauge x 5/32 needleIndicat ions:Type 2 diabetes mellitus with hyperglycemia [...] mg total) by mouth daily 30 tablet 03/01/20 24 025 Active butalbital-ac etaminophen-c affeine [...] TIMES DAILY WITH INSULIN PENS 400 each 09/21/20 24 Active insulin glargine 100 unit/mL [...] prescribed. Assessment & Plan (09/28/2022 4:47 PM COMMUNITY SUPPORT SPECIALIST): This is a chronic condition which is [...] prescribed. Assessment & Plan (08/11/2021 4:41 PM COMMUNITY SUPPORT SPECIALIST): This is a chronic condition which is [...] week. Encouraged to take medications as prescribed. 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 Body mass index 40.0-44.9, adult ([facility]) 01/19 Assessment & Plan (01/25/2023 9:36 AM CDT): This is a chronic condition which is improving Decreased 8 lb since last office visit Increase Trulicity to 3 mg weekly Encourage continue weight loss Assessment & Plan (09/28/2022 4:46 PM COMMUNITY SUPPORT SPECIALIST): This is a chronic condition which is improved 13 lb weight loss since last office visit Encourage continue weight loss and exercise Declined to increase Trulicity as he feels his appetite is decreased Assessment & Plan (01/19/2022 3:00 PM CDT): Encouraged weight loss and exercise. 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 Assessment & Plan (09/28/2022 4:47 PM COMMUNITY SUPPORT SPECIALIST): This is a chronic condition which is [...] prescribed. Assessment & Plan (08/11/2021 4:40 PM COMMUNITY SUPPORT SPECIALIST): This is a chronic condition which is [...] COMPLICATION, WITH LONG-TERM CURRENT USE OF INSULIN ([facility] ([facility]) WRITTEN ON 05/09/2018 2:19 AM BY ANA [...] atorvastatin Assessment & Plan (09/28/2022 4:46 PM COMMUNITY SUPPORT SPECIALIST): This is a chronic condition which is [...] prior to meals. Encouraged to use Omnipod system Monitor blood sugar 4x times [...] disease. 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 Coronary artery disease invo lving [place] coronary artery 05/09/2018 05/05/2021 Assessment & Plan (05/09/2018 2:20 AM CDT): Reportedly patient with history of 2 heart attacks. Continue with losartan. Continue aspirin and statin Morbid obesity ([facility]) 05/09/2018 Assessment & Plan (05/09/2018 2:21 AM CDT): BMI 44, Weight loss encouraged. Left upper quadrant pain 05/09/2018 Assessment & Plan (05/09/2018 2:23 AM CDT): So far unclear etiology. UA is consistent with UTI. CT of the abdomen and pelvis negative for perinephric stranding. Discussed possible causes including early pyelo nephritis versus abdominal wall hernia versus sliding Hiatal hernia at [place]. Patient was started on IV antibiotics Will continue with days. Urine culture and blood cultures are pending. Will follow up with results and adjust antibiotics as needed. Trend daily CBC Sepsis secondary to UTI ([facility]) 05/09/2018 05/05/2021 Assessment & Plan (05/09/2018 2:28 AM CDT): Patient meets the criteria for sepsis secondary to UTI with elevated white cell count , no hypotension. Currently on ciprofloxacin. Continue with IV antibiotics Repeat lactic acid levels. Trend daily CBC Cultures are pending. Will follow up with urine and blood culture results. Strict I&Os Pyelonephritis 05/05/2021 Chest pain 05/05/2021 Encounters Date Type Department Care Team Description 01/19/2025 4:00 PM CDT Office Visit [facility] at [address] [phone] Lacy Vail, [place] Type 2 diabetes mellitus with hyperglycemia, with long-term current use of insulin ([facility]) (Primary Dx); Hypertension associated with type 2 diabetes mellitus (HCC); Mixed diabetic hyperlipidemia associated with type 2 diabetes mellitus ([facility]); Class 3 severe obesity due to excess calories with serious comorbidity and body mass index (BMI) of 40.0 to 44.9 in adult ([facility]); Dexcom continuous glucose monitoring device 01/08/2025 9:45 AM CDT Office Visit [facility] [address] [place] [phone] Belle Armas MD Hypersomnia (Primary Dx); SHERRI (obstructive sleep apnea); Morbid obesity with BMI of 40.0-44.9, adult ([facility]) 11/06/2024 9:45 AM COMMUNITY SUPPORT SPECIALIST Office Visit [facility] [address] [phone] Belle Armas MD SHERRI (obstructive sleep apnea) (Primary Dx); Hypersomnia with sleep apnea; Morbid obesity with BMI of 40.0-44.9, adult ([facility]) from Last 3 Months Immunizations Immunization Administration Dates Next Due Influenza, Quadrivalent, Spl it, Preservative Free, Intramuscular 10/08/2019 Influenza, Unspecified 07/01/2020 Surgical History Surgery Date Site/Laterality Comments CHOLECYSTECTOMY APPENDECTOMY ABDOMINAL SURGERY gallbladder COLONOSCOPY 7 years COLONOSCOPY 06/14/2023 COLONOSCOPY 08/23/2023 COLONOSCOPY 12/11/2023 Medical History Medical History Date Comments Asthma Heart attack (HCC) Pt. stated, h e has two Coronary artery disease Hypertension Diabetes mellitus (HCC) CHF (congestive heart failure) (HCC) Stroke (HCC) Sleep apnea Type 2 diabetes mellitus (HCC) Diabetes mellitus (HCC) 05/09/2018 Hypertension 05/09/2018 Morbid obesity (HCC) 05/09/2018 Left upper quadrant pain 05/09/2018 Pyelonephritis Left upper quadrant pain 04/16/2019 Chest pain At risk for obstructive sleep apnea 04/16/2019 Suspected COVID-19 virus infection 08/30/2020 Cough 03/03/2020 Coronary artery disease invo lving [place] coronary artery 05/09/2018 Ureteral calculus, left 06/09/2020 Added au tomatically from request for surgery [id number] Mixed hyperlipidemia Class 3 severe obesity with serious comorbidity and body mass index (BMI) of 45.0 to 49.9 in adult (HCC) 04/16/2019 Hypertensive urgency 05/24/2022 Family History Medical History Relation Name Comments Cancer Father Heart attack Father Stroke Father Diabetes Mother Hypertension Mother Relation Name Status Comments Father lung ca Mother Alive Social History Tobacco Use Types Packs/Day Years Used Date Smoking Tobacco: Never Smokeless Tobacco: Never Tobacco Cessation:Counseling Given: Not Answered Alcohol Use Standard Drinks/Week Comments Never 0 (1 standard drink = 0.6 oz pur e alcohol) [facility] [employer] Answer Date Recorded In the past 12 months has [employer], gas, oil, or water [employer] threatened to shut off services in your [...] 02/28/2024 How often do you attend chur or buddhism services? More than 4 times per year 02/28/2024 Do you belong to any clubs o r organizations such as sikhism groups, unions, fraternal or athletic groups, or [...] any time in the past 12 m [facility], were you homeless or living in a care home (including now)? No 02/28/2024 Personal Safety Answer [...] on file Sexual Orientation Not on file Obstetrics History Last Filed Vital Signs Vital Sign Reading [...] 01/19/2025 3:13 PM CDT Plan of Treatment Health Maintenance Due Date Last Done Comments Hepatitis C Screening 1975 Dilated Eye Exam 1975 DTaP/Tdap/Td Vaccine (1 - Tdap) 02/11/1987 Hepatitis B Screening 02/11/1994 Regular Well Visit/Exam 18-64 02/11/1994 Pneumococcal vaccine <65 (1 of 2 - PCV) 02/11/1995 Foot Exam 01/26/2024 01/25/2023, 02/2023, 06/22/2022, Additional history exists Covid-19 Vaccine ( - 2023-2 5 season) 2024 09/14/2021, 01/02/2021, 12/05/2020 Depression Screening 11/03/2024 11/03/2023, 10/05/2019, 04/15/2019, Additional history exists Influenza Vaccine (Season Ended) 2025 09/14/2021, 07/01/2020, 10/08/2019 Albumin Creatinine Ratio, Urine 06/26/2025 06/26/2024, 05/17/2023, 01/23/2022 eGFR 06/26/2025 06/26/2024, 0 03/2024, 02/27/2024, Additional history exists Hemoglobin A1C 07/21/2025 01/19/2025, 100 12/2023, 02/28/2024, Additional history exists Lipid Panel 08/26/2025 08/26/2024, 100 12/2023, 04/30/2024, Additional history exists Colon Cancer Screening-Colonoscopy 12/10/2033 12/11/2023, 08/23/2023, 06/14/2023 Medical Devices Explanted Type Area Plant Puller Device Identifier Shelf Expiration Date Model / Serial / Lot [employer] [id number] Inlay [employer] Deposit 6fr 24cm Pusher Fluoro Marker Atraumatic Insertion Latex Free - [id number] Implanted:Qty: 1 on 06/10/2020 by Broderick Ramsey MD at [facility] Explanted:Qty: 1 on 07/01/2020 by Charles Smith MD Stent Left: Ureter [employer] [id number] 01/29/2024 [id number] / / [id number] Procedures Procedure Name Priority Date/Time Associated Diagnosis [...] 01/19/2025 3:14 PM CDT us Lacy Vail ARCHEOLOGIST CLASSICAL POINT OF CARE TEST ORDERABLES F inal [...] NP LAB BLOOD ORDERABLES Final Resu lt [facility] [id number] [address] Department [place] [address] * Albumin Creatinine Ratio, Urine (06/26/2024 8:50 AM CDT) Albumin Ur <12.0 mg/L Comment: Interpretive Data No reference range established. Current interpretive data was last revised 2019. Creatinine Ur 124.6 mg/dL [facility] Comment: Interpretive Data No reference range established. Current interpretive data was last revised 2019. Albumin Creatinine Ratio, Ur <10 1 - 29 mg/g [facility] Urine 06/26/2024 8:50 AM CDT 06/26/2024 6:19 PM CDT us Lacy Vail NP LAB URINE ORDERABLES Final Resu lt [facility] [address] [address] Department [place] [address] * Lipid panel (06/26/2024 8:50 AM CDT) [...] revised on 2018. Triglycerides 126 <=149 mg/dL [facility] Comment: Interpretive Data Ages < or = [...] on 2024. Non-HDL Cholesterol 133 mg/dL BELK[facility] WILL Comment: Interpretive Data Ages [...] CDT 06/26/2024 6:19 PM CDT Narrative BELKIS WILL - 06/26/2024 6:45 PM CDT These lab test should be done fasting. This means do not eat or drink for at least 12 hours prior to getting your blood drawn. Has the patient been fasting for 8 hours or more?->Yes us Lacy Vail NP LAB BLOOD ORDERABLES Final Resu lt [facility] [id number] [address] Department [place] [address] * Colonoscopy (12/11/2023 7:26 AM CDT) Anatomical Region Laterality Modality Other Narrative Procedure Note Vamsi Lewis MD - 12/11/2023 7:26 AM CDT [facility] Patient Name: Danny Blevins Procedure Date: 12/11/2023 7:26 AM Date of : 1975 Admit Type: Outpatient Age: 48 Gender: Male Attending MD: Vamsi Lewis M.D. Room: [facility] ENDOSCOPY ROOM 3 Note Status: Finalized [...] scope was passed under direct vision. TheColonoscope [id number] was introduced through the anus and advanced [...] history of colonic polyps CPT copyright 2020 [employer]. All rights reserved. The codes documented in this report are preliminary and upon beamer operator reviewmay be revised to meet current compliance requirements. Recognized by the [employer] for promoting quality in endoscopy Vamsi Lewis MD ENDOSCOPY PROCEDURES Final Re sult from Last 3 Months or Most Recently Relevant to Health Maintenance [facility] H[facility] Advance Directives For more information, please contact: [phone] Documents on File Type Date Recorded Patient Logistics Engineer Expl anation ADVANCE DIRECTIVE 03/02/2024 12:03 PM Myesha r of Last [facility] * Full Code (Latest Code Status on [...] 6:20 AM 11/06/2023 1:42 AM Care Teams Shipwright Apprentice Relationship Specialty Start Date End Date Joe Woody MD PCP - General 06/15/20 Joe Woody MD 06/15/20 Unknown, Notinfile 04/15/19 Belle Armas MD Consulting Physician Neurology 04/17/19 Corbin Ayala MD Consulting Physician Gastroenterology 04/17/19 Slim Grove MD [address] [place] [address] [place] [address] Consulting Physician Neurology 03/04/20 Miscellaneous, Not In File 03/04/20
--- NOTE | 2025-02-01 12:00 | ED.SKABFB ---
HPI - Skin/Abscess/Foreign Bdy General Chief complaint: Skin/Abscess/Foreign Body Stated complaint: rash Time Seen by Provider: 02/01/25 11:30 Source: patient, RN notes reviewed and old records reviewed Mode of arrival: ambulatory Limitations: no limitations History of Present Illness HPI narrative: 49 year old male presents to express care with complaints of rash to his forearms and hand for the past 2 days states that he has been working in the yard an thinks he may of been exposed to poison asmita. Patient reports that rash is itchy and he has been applying Calamine lotion without much relief. Patient reports no difficulty with swallowing or with breathing. Patient reports that he has also taken some Benadryl for his itching. No one else in household has any rash. Patient is diabetic and is on insulin pump and has Notorious glucose monitor. MD complaint: rash Onset (ago): day(s) (2) Location: LUE, RUE, L hand and R hand Severity: moderate Quality: pruritic Treatments prior to arrival: Benadryl and other (calamine ointment) Related Data Home Medications ?Medication ?Instructions ?Recorded ?Confirmed ?Last Taken ?Type insulin pump cartridge (Omnipod 08/29/21 08/13/22 Unknown History Dash Insulin Pod) buspirone 10 mg tablet 10 mg PO DAILY 11/03/23 05/20/24 Unknown History carbamazepine 200 mg tablet 200 mg PO TID 11/03/23 05/20/24 Unknown History dulaglutide 3 mg/0.5 mL See Rx Instructions .Route .COMPLEX 11/03/23 05/20/24 Unknown History subcutaneous pen injector (Trulicity) famotidine 20 mg tablet 20 mg PO DAILY 11/03/23 05/20/24 Unknown History insulin glargine 100 unit/mL (3 See Rx Instructions .Route .COMPLEX 11/03/23 05/20/24 Unknown History mL) subcutaneous pen (Lantus Solostar U-100 Insulin) metoprolol succinate 100 mg 100 mg PO DAILY 11/03/23 05/20/24 Unknown History tablet,extended release 24 hr nortriptyline 25 mg capsule 25 mg PO BID 11/03/23 05/20/24 Unknown History pen needle, diabetic 32 gauge x 11/03/23 11/03/23 Unknown History (BD Raisa 2nd Gen Pen Needle) tizanidine 2 mg tablet 2 mg PO BID 11/03/23 05/20/24 Unknown History amlodipine 10 mg tablet 10 mg PO DAILY 05/20/24 05/20/24 Unknown History atorvastatin 80 mg tablet 80 mg PO DAILY 05/20/24 05/20/24 Unknown History ezetimibe 10 mg tablet 10 mg PO DAILY 05/20/24 05/20/24 Unknown History losartan 100 mg tablet 100 mg PO DAILY 05/20/24 05/20/24 Unknown History sennosides 8.6 mg tablet (senna) See Rx Instructions .Route 05/20/24 05/20/24 Unknown History .COMPLEX PRN Constipation spironolactone 25 mg tablet 25 mg PO BID 05/20/24 05/20/24 Unknown History albuterol sulfate 90 mcg/actuation inhalation 02/01/25 Unknown History aerosol inhaler aspirin 81 mg chewable tablet 02/01/25 Unknown History Allergies Allergy/AdvReac Type Severity Reaction Status Date / Time Penicillins Allergy Mild Rash Verified 05/20/24 17:39 Sulfa (Sulfonamide Allergy Mild Rash Verified 05/20/24 17:39 Antibiotics) Review of Systems Review of Systems: CONSTITUTIONAL: Denies fever, chills, or sweats. CARDIOVASCULAR: Denies chest pain, palpitations, or edema. RESPIRATORY: Denies cough or dyspnea. SKIN: Reports red itchy rash on hands and on arms after working in the yard MUSCULOSKELETAL: Denies joint pain or myalgia. NEUROLOGIC: Denies headache, numbness, or weakness. All systems reviewed & are unremarkable except as noted in HPI and below PMFSH Past Medical History Medical History (Updated 02/02/25 @ 14:46 by Diane Mahan NP) Hypertension Carpal tunnel syndrome Depression Anxiety History of TIA (transient ischemic attack) History of myocardial infarction Diabetes Asthma Surgical History Surgical History History of carpal tunnel surgery History of cholecystectomy Hx of appendectomy Family History Family History Father Throat cancer Mother Heart disease Social History Social History Smoking status: Never smoker Second hand tobacco smoke exposure: No Substance use: never Living arrangements: with family Occupation/Education: occupation Gender identity (if verbalized by the patient): Male Comments At time of signature, agree with nursing past medical, surgical, social and family history. There is no relevant family history pertinent to the presenting complaint Exam Narrative: GENERAL: Well-appearing, well-nourished, and in no acute distress. HEAD: Normocephalic, atraumatic. EYES: PERRLA, conjunctivae clear, and EOMI. ENT: Mucous membranes moist. Oropharynx without edema, erythema or lesions. NECK: Supple. No lymphadenopathy CHEST: Clear to auscultation. No respiratory distress.SAO2 98% on room air HEART: Regular rate and rhythm. SKIN: Warm, dry.? Patches of red raised rash scattered on hands and bilateral forearms that is itchy, has been working in yard NEURO:? Alert and oriented x3. PSYCH: Normal mood and affect Course Course Emergency Course: Patient is aware of diagnosis, understands and agrees to treatment plan.? Anticipatory guidance given.? Patient agrees to follow-up as directed and is aware of reasons to seek care at the emergency department. Portions of this record may have been created with voice recognition software Level of Care: Express Care Visit Vital Signs Vital signs: Vital Signs Temperature 36.5 C 02/01/25 11:10 Pulse Rate 02/01/25 11:10 Respiratory Rate 02/01/25 11:10 Blood Pressure 141/78 H 02/01/25 11:10 Pulse Oximetry 98 02/01/25 11:10 Oxygen Delivery Room Air 02/01/25 11:10 Temperature 36.5 C 02/01/25 11:10 Pulse Rate 67 02/01/25 11:10 Respiratory Rate 02/01/25 11:10 Blood Pressure 141/78 H 02/01/25 11:10 Pulse Oximetry 98 02/01/25 11:10 Oxygen Delivery Room Air 02/01/25 11:10 Reviewed MDM - Skin/Abscess/Foreign Bdy MDM Narrative Medical decision making narrative: Does not appear at this time to be erythema multiforme, bullous, SJS, TEN; no evidence at this time to suggest RMSF, endocarditis or Lyme disease; patient looks well, nontoxic and is tolerating oral intake; no neurologic signs or symptoms; no headache, photophobia or neck pain; afebrile; appropriate for initial outpatient treatment; discussed the importance of follow-up, patient agrees; question, viral exanthema, contact dermatitis, allergic dermatitis, eczema, urticaria, [ xx ]. No soft palate or uvula edema, no tongue, lip edema or other mucosal involvement, no respiratory compromise, no stridor, no wheezing, no wheezing, no history of syncope, no hypotension, no nausea, vomiting, or diarrhea.? Instructed patient to go to nearest ER immediately for any worsening symptoms including but not limited to: fever, spreading rash, pain, sore throat, headache, dizziness, chest pain, trouble breathing, or any symptoms concerning to the patient. Differential Diagnosis Differential diagnosis: Likely cellulitis, eczema, contact dermatitis and other (poison asmita dermatitis) Medical Records Attestation: I reviewed the patient's medical records. Critical Care Time Critical Care Time Critical Care Time: No Discharge Plan Discharge Clinical Impression: Contact dermatitis Qualifiers: Contact dermatitis type: allergic Contact dermatitis trigger: non-food plants Qualified Code(s): L23.7 - Allergic contact dermatitis due to plants, except food Patient Disposition: Home Condition: Stable Instructions: Contact Dermatitis (ED) Additional Instructions: Apply triamcinolone ointment to rash twice daily never apply this to the face watch for any increasing infection--redness, swelling, drainage Tylenol or ibuprofen for any fever pain Zyrtec daily for 10 days Pepcid 20 mg daily for 10 days follow up with PCP in 7-10 days for a wound check recheck if develop fever, chills, increasing symptom Go to the ER if your symptoms become worse of if ANY new symptoms develop Steroid taper take with food make sure you watch your glucose levels while taking this medication maintain dietary restriction If your symptoms persist, change or worsen significantly before you can contact your personal physician then please, without delay, go to the emergency department for further evaluation. Follow-up with PCP in 7-10 days or sooner if needed Follow up with PCP soon in regards to your blood pressure which is elevated above threshold for referral. Blood pressure above 120/80 may indicate pre-hypertension. 141/78 Patient Language: Setswana Prescriptions: New prednisone 10 mg tablet 10 mg PO DIRECTED Qty: 21 0RF Rx Instructions: see taper instructions 6 tabs day 1, 5 tabs day 2, 4 tabs day 3, 3 tabs day 4, 2 tabs day 5, 1 tab day 6 famotidine [Acid Pickling Drum Operator (famotidine)] 20 mg tablet 20 mg PO DAILY Qty: 10 0RF triamcinolone acetonide 0.1 % ointment 1 applic topical BID Qty: 80 0RF Rx Instructions: never apply on the face No Action (DME) Omnipod Dash Pods (Gen 4) Cartridge SUBCUT atorvastatin 80 mg tablet 80 mg PO DAILY spironolactone 25 mg tablet 25 mg PO BID losartan 100 mg tablet 100 mg PO DAILY amlodipine 10 mg tablet 10 mg PO DAILY sennosides [senna] 8.6 mg tablet See Rx Instructions .ROUTE .COMPLEX PRN (Reason: Constipation) Rx Instructions: PRESCRIBED ezetimibe 10 mg tablet 10 mg PO DAILY aspirin 81 mg tablet,chewable albuterol sulfate 90 mcg/actuation HFA aerosol inhaler INHALATION tizanidine 2 mg tablet 2 mg PO BID metoprolol succinate 100 mg tablet extended release 24 hr 100 mg PO DAILY nortriptyline 25 mg capsule 25 mg PO BID carbamazepine 200 mg tablet 200 mg PO TID famotidine 20 mg tablet 20 mg PO DAILY buspirone 10 mg tablet 10 mg PO DAILY insulin glargine [Lantus Solostar U-100 Insulin] 100 unit/mL (3 mL) insulin pen See Rx Instructions .ROUTE .COMPLEX Rx Instructions: PRESCRIBED (DME) pen needle, diabetic [BD Raisa 2nd Gen Pen Needle] 32 gauge x 5/32 needle MISCELLANEOUS Trulicity 3 mg/0.5 mL pen injector See Rx Instructions .ROUTE .COMPLEX Rx Instructions: PRESCRIBED Follow-up/Referrals: Bong,Joe Kearney MD [Primary Care Provider] - Stand Alone Forms: Work/School Release IP Time of Disposition: 12:10 Quality [place] Coma Scale Eyes: Open Verbal: Oriented and Alert Motor: Follows Commands [place] Coma Total Score: 15
== END 2025-02-01 12:27 | disposition home or self-care (01) ==
PROVIDERS: Emergency Provider Registered Nurse; PCP Family Medicine
DX: L23.7 Allergic contact dermatitis due to plants, except food (principal); I10 Essential (primary) hypertension; E11.9 Type 2 diabetes mellitus without complications; Z79.4 Long term (current) use of insulin; Z96.41 Presence of insulin pump (external) (internal); J45.909 Unspecified asthma, uncomplicated; F41.9 Anxiety disorder, unspecified; F32.A Depression, unspecified; Z86.73 Personal history of transient ischemic attack (TIA), and cerebral infarction without residual deficits; I25.2 Old myocardial infarction
CPT/HCPCS: 99213; G0463